=== PATIENT | female | born 1950 | race Caucasian/White ===

== ENCOUNTER 2019-02-20 10:36 | Day surgery (SDC) | payer OTHER ==
[~2019-02-20] VITALS: Ht 160 cm; Wt 78.5 kg
[~2019-02-20 10:36] MED LIST: ADV100INH INH; ARIP1TAB4 PO; ATEN25TA PO; ATOR40TA75 PO; DITR5TAB PO; EFFE150C2 PO; ESTR625TA PO; FENO135C6 PO; FLON1SPR; GABA-845 PO; KLOR10TA76 PO; NABU-126 PO; NS 1,000 ML IV ONE; ORPH100T PO; PROT1TAB2 PO; VENTAER INH; ZETI10TA30 PO
[2019-02-20] MEDS ORDERED: PROPOFOL 200 MG/20 ML VIAL As Ordered ONE (11:18)
[2019-02-20] MEDS ORDERED: LIDOCAINE 2% INJ 100 MG/5 ML SDV (FOR ANES.) As Ordered ONE (11:18)
[2019-02-20] MEDS ORDERED: fentaNYL 100 MCG/2 ML INJECTION (J3010) As Ordered ONE (12:09)
[2019-02-20 13:20] VITALS: BP 137/71
--- NOTE | 2019-02-20 13:29 | ROOR ---
Patient Name: Dianne Graham Procedure Date: 02/20/2019 12:39 PM Date of : 1950 Age: 68 Room: [facility] Gender: Female Note Status: Finalized Procedure: Upper GI endoscopy Indications: Follow-up of hiatal hernia Providers: Minor Pantoja MD Referring MD: Harini Romo Requesting Provider: Medicines: Monitored Anesthesia Care Complications: No immediate complications. Procedure: Pre-Anesthesia Assessment: - Prior to the procedure, a History and Physical was performed, and patient medications and allergies were reviewed. The patient is competent. The risks and benefits of the procedure and the sedation options and risks were discussed with the patient. All questions were answered and informed consent was obtained. Patient identification and proposed procedure were verified by the physician, the nurse and the anesthesiologist in the procedure room. Mental Status Examination: alert and oriented. CV Examination: regular rate and rhythm. Prophylactic Antibiotics: The patient does not require prophylactic antibiotics. Prior Anticoagulants: The patient has taken no previous anticoagulant or antiplatelet agents. ASA Grade Assessment: II - A patient with mild systemic disease. After reviewing the risks and benefits, the patient was deemed in satisfactory condition to undergo the procedure. The anesthesia plan was to use monitored anesthesia care (MAC). Immediately prior to administration of medications, the patient was re-assessed for adequacy to receive sedatives. The heart rate, respiratory rate, oxygen saturations, blood pressure, adequacy of pulmonary ventilation, and response to care were monitored throughout the procedure. The physical status of the patient was re-assessed after the procedure. The Endoscope was introduced through the mouth, and advanced to the second part of duodenum. The upper GI endoscopy was accomplished without difficulty. The patient tolerated the procedure well. Findings: The examined esophagus was normal. The Z-line was regular and was found 30 cm from the incisors. A large hiatal hernia was present. The diaphragm lay at approximately 35cm with the impingement in the mid gastric body. Multiple 2 to 10 mm sessile polyps with no bleeding and no stigmata of recent bleeding were found in the gastric body. Two localized, 2 to 3 mm non-bleeding erosions were found in the prepyloric region of the stomach. There were no stigmata of recent bleeding. The examined duodenum was normal. Impression: - Normal esophagus. - Z-line regular, 30 cm from the incisors. - Large hiatal hernia. - Multiple gastric polyps. - Non-bleeding erosive gastropathy. - Normal examined duodenum. - No specimens collected. Recommendation: - Discharge patient to home. - Resume previous diet. - Continue present medications. - Return to endoscopist at appointment to be scheduled. Minor Pantoja MD Minor Pantoja MD 02/20/2019 1:28:55 PM Electronically signed by Minor Pantoja MD Number of Addenda: 0 Note Initiated On: 02/20/2019 12:39 PM Estimated Blood Loss: Estimated blood loss: none.
== END 2019-02-20 13:59 | disposition home or self-care (01) ==
LOC: M OPP 10:36
PROVIDERS: ATTEND Surgery
DX: K44.9 Diaphragmatic hernia without obstruction or gangrene (principal); R11.2 Nausea with vomiting, unspecified; K31.7 Polyp of stomach and duodenum; K31.89 Other diseases of stomach and duodenum; F41.9 Anxiety disorder, unspecified; K21.9 Gastro-esophageal reflux disease without esophagitis; M54.89 Other dorsalgia; J45.909 Unspecified asthma, uncomplicated; I10 Essential (primary) hypertension; E78.5 Hyperlipidemia, unspecified; K58.9 Irritable bowel syndrome, unspecified; K92.1 Melena; R13.10 Dysphagia, unspecified; R35.0 Frequency of micturition; M19.90 Unspecified osteoarthritis, unspecified site; F32.9 Major depressive disorder, single episode, unspecified; Z78.0 Asymptomatic menopausal state; J44.9 Chronic obstructive pulmonary disease, unspecified; R06.02 Shortness of breath; Z87.891 Personal history of nicotine dependence; Z88.5 Allergy status to narcotic agent; Z79.899 Other long term (current) drug therapy
CPT/HCPCS: 43235; J3010

== ENCOUNTER 2019-03-17 10:30 | Inpatient (IN) | payer OTHER ==
[~2019-03-17] VITALS: Ht 160 cm; Wt 76.3 kg
[~2019-03-17 10:30] MED LIST changes: -NS 1,000 ML IV ONE; +ZETI10TA16 PO; -ZETI10TA30 PO
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
[2019-03-31] MEDS ORDERED: LR 1,000 ML IV ONE (08:45)
[2019-03-31] MEDS ORDERED: PROPOFOL 200 MG/20 ML VIAL As Ordered ONE (08:59)
[2019-03-31] MEDS ORDERED: ROCURONIUM BROMIDE 50 MG/5 ML VIAL As Ordered ONE ×2 (08:59→14:04)
[2019-03-31] MEDS ORDERED: dexameTHASONE 4 MG/ML 1ML VIAL (J1100) As Ordered ONE (09:00)
[2019-03-31] MEDS ORDERED: MIDAZOLAM INJ 2 MG/2 ML VIAL (J2250) As Ordered ONE (09:00)
[2019-03-31] MEDS ORDERED: LIDOCAINE 2% INJ 100 MG/5 ML SDV (FOR ANES.) As Ordered ONE (09:00)
[2019-03-31] MEDS ORDERED: KETOROLAC 60 MG/2 ML VIAL (J1885) As Ordered ONE (09:00)
[2019-03-31] MEDS ORDERED: ONDANSETRON 4MG/2ML VIAL (J2405) As Ordered ONE (09:00)
[2019-03-31] MEDS ORDERED: fentaNYL 250 MCG/5 ML INJECTION (J3010) As Ordered ONE (09:00)
[2019-03-31] MEDS ORDERED: BUPIVACAINE HCL 0.25% 30 ML VIAL As Ordered ONE (10:19)
[2019-03-31] MEDS ORDERED: ePHEDrine SULFATE 25 MG/5 ML(5MG/ML) SYRINGE As Ordered ONE (13:32)
[2019-03-31] MEDS ORDERED: SUGAMMADEX SODIUM 500 MG/5 ML VIAL (BRIDION) As Ordered ONE (14:04)
[2019-03-31] MEDS ORDERED: HYDROmorphone HCL 2 MG/ML 1ML VIAL (J1170) As Ordered ONE (14:29)
[2019-03-31] MEDS ORDERED: ACETAMINOPHEN 1000MG 100ML IV BTL (OFIRMEV) (J0131 PER 10MG) As Ordered ONE (14:51)
[2019-03-31] MEDS ORDERED: ceFAZolin 2 GM/D5W 50 ML IV BAG (J0690 PER 500MG) As Ordered ONE (16:56)
[2019-03-31] MEDS ORDERED: METOCLOPRAMIDE INJ 10MG/2ML VIAL (J2765) IV PRN (18:45)
[2019-03-31] MEDS ORDERED: ONDANSETRON 4MG/2ML VIAL (J2405) IV PRN ×2 (18:45→19:00)
[2019-03-31] MEDS ORDERED: ceFAZolin SOD 1 GM in D5W MINI-BAG PLUS 50 ML IV ONE (18:45)
[2019-03-31] MEDS ORDERED: fentaNYL 100 MCG/2 ML INJECTION (J3010) IV PRN (19:00)
[2019-03-31] MEDS ORDERED: PERCOCET 5MG/325MG TAB PO PRN (19:00)
[2019-03-31] MEDS ORDERED: LR 1,000 ML IV SCH (19:00)
[2019-03-31] MEDS ORDERED: hydrALAZINE INJ 20 MG/ML VIAL IV PRN (19:00)
[2019-03-31] MEDS: LABETALOL HCL 100 MG/20 ML VIAL IV PRN ×2 (19:07→19:13)
--- NOTE | 2019-03-31 19:34 | REP ---
Portable chest x-ray: Single view. History: Evaluate for pneumothorax. Comparison study: January 29, 2008. Findings: There is extrathoracic soft tissue emphysema along the left lower lateral chest wall. A small left superolateral pneumothorax is suspected. The right lung is clear. No rib fracture is appreciated. Impression: Extrathoracic soft tissue emphysema along the left lower lateral chest wall. A small left superolateral pneumothorax suspected. No large pneumothorax seen. Linear fibrosis right mid lung zone. Electronically Signed by Ranjan Mccain MD 03/31/2019 07:26 P
[2019-03-31 19:35] VITALS: BP 186/94
[2019-03-31] MEDS: ADVAIR HFA 115/21MCG INHALER INH SCH (21:00)
[2019-03-31] MEDS: GABAPENTIN 400 MG CAP PO SCH (21:00)
[2019-03-31 22:00] VITALS: BP 184/94
[2019-03-31] MEDS: LR 1,000 ML IV SCH (22:49)
[2019-03-31] MEDS: KETOROLAC 30 MG/ML VIAL (J1885) IV PRN (22:49)
[2019-03-31 23:00] VITALS: BP 160/76
[2019-04-01] VITALS (9 sets, daily range): BP systolic 138–170; BP diastolic 69–78
[2019-04-01] MEDS: NORCO, ANEXSIA 5/325MG TABLET (HYDROcodone/ACETAMINOPHEN) PO PRN ×3 (02:38→17:42)
[2019-04-01] MEDS: MORPHINE 4 MG/ML 1ML VIAL/SYRINGE (J2270) IV PRN (03:17)
[2019-04-01 06:09] LABS: BASO % 0.2 % (0.0-1.0); HEMATOCRIT 31.8 % (36.0-47.0); HEMOGLOBIN 9.3 g/dl (12.0-15.5); LYMPH # 0.8 10^3/uL (1.5-5.0); LYMPH % 12.8 % (24.0-44.0); MEAN CORPUSCULAR HEMOGLOBIN 20.8 pg (27.0-33.0); MEAN CORPUSCULAR HGB CONC 29.2 g/dl (32.0-36.5); MONO # 0.5 10^3/uL (0.0-0.8); MONO % 7.5 % (0.0-5.0); NEUTROPHILS # 5.1 10^3/uL (1.5-8.5); NEUTROPHILS % 79.2 % (36.0-66.0); PLATELET COUNT, AUTOMATED 145 10^3/uL (150-450); RED BLOOD COUNT 4.48 10^6/uL (4.00-5.40); WHITE BLOOD COUNT 6.4 10^3/uL (4.0-10.0)
[2019-04-01 06:35] LABS: ALBUMIN 3.4 GM/DL (3.2-5.2); ALT/SGPT 579 U/L (12-78); BILIRUBIN,TOTAL 0.4 MG/DL (0.2-1.0); BLOOD UREA NITROGEN 20 MG/DL (7-18); CALCIUM LEVEL 8.7 MG/DL (8.8-10.2); CARBON DIOXIDE LEVEL 29 MEQ/L (21-32); CHLORIDE LEVEL 106 MEQ/L (98-107); CREATININE FOR GFR 0.82 MG/DL (0.55-1.30); GLOMERULAR FILTRATION RATE > 60.0 (>39); GLUCOSE, FASTING 114 MG/DL (70-100); POTASSIUM SERUM 3.9 MEQ/L (3.5-5.1); SODIUM LEVEL 143 MEQ/L (136-145); TOTAL PROTEIN 6.1 GM/DL (6.4-8.2)
[2019-04-01] MEDS: ADVAIR HFA 115/21MCG INHALER INH SCH ×2 (07:35→20:32)
[2019-04-01] MEDS: PANTOPRAZOLE 40MG INJ (PROTONIX) (C9113) IV SCH (07:54)
[2019-04-01] MEDS: ENOXAPARIN 40 MG/0.4 ML SYRINGE (J1650) SC SCH (07:55)
[2019-04-01] MEDS: ARIPiprazole 2 MG TAB PO SCH (07:55)
[2019-04-01] MEDS: ATENOLOL 25 MG TAB PO SCH (07:55)
[2019-04-01] MEDS: GABAPENTIN 400 MG CAP PO SCH ×3 (07:55→20:49)
[2019-04-01] MEDS: LR 1,000 ML IV SCH ×2 (07:56→17:29)
[2019-04-01] MEDS: ALBUTEROL 90 MCG/ACT 8GM HFA INHALER INH PRN (11:04)
[2019-04-01] MEDS: KETOROLAC 30 MG/ML VIAL (J1885) IV PRN ×2 (11:12→20:50)
[2019-04-02] VITALS: BP 138/73
[2019-04-02] MEDS: MORPHINE 4 MG/ML 1ML VIAL/SYRINGE (J2270) IV PRN ×3 (01:03→20:33)
[2019-04-02] MEDS: NORCO, ANEXSIA 5/325MG TABLET (HYDROcodone/ACETAMINOPHEN) PO PRN (03:35)
[2019-04-02 06:00] VITALS: BP 156/81
[2019-04-02] MEDS: ADVAIR HFA 115/21MCG INHALER INH SCH ×2 (07:42→18:19)
[2019-04-02] MEDS ORDERED: PILL CUTTER 1 EACH XX PRN (08:30)
[2019-04-02] MEDS: ENOXAPARIN 40 MG/0.4 ML SYRINGE (J1650) SC SCH (08:39)
[2019-04-02] MEDS: DOCUSATE SODIUM 100 MG CAP PO SCH ×2 (08:40→20:33)
[2019-04-02] MEDS: KETOROLAC 30 MG/ML VIAL (J1885) IV PRN ×2 (08:40→16:16)
[2019-04-02] MEDS: PANTOPRAZOLE 40MG INJ (PROTONIX) (C9113) IV SCH (08:40)
[2019-04-02] MEDS: GABAPENTIN 400 MG CAP PO SCH ×3 (08:40→20:34)
[2019-04-02] MEDS: ARIPiprazole 2 MG TAB PO SCH (08:41)
[2019-04-02] MEDS: SIMETHICONE 80 MG CHEW TAB PO SCH ×4 (08:41→20:34)
[2019-04-02] MEDS: ATENOLOL 25 MG TAB PO SCH (08:41)
--- NOTE | 2019-04-02 09:30 | REP ---
Portable chest x-ray: Single view. History: Follow-up question pneumothorax. Findings: The extrathoracic air seen along the left lower lateral chest wall on 03/31/2019 prior radiograph has dissipated. There is no visible pneumothorax today on either side. There is increased density in the left base obscuring left hemidiaphragm and blunting the left lateral pleural angle consistent with small left pleural effusion however. There is discoid atelectasis in the right base. Some discoid atelectasis appears to be present in the left base. Impression: Left pleural effusion. No pneumothorax seen. Bibasilar plate-like atelectasis. Electronically Signed by Ranjan Mccain MD 04/02/2019 09:21 A
[2019-04-02 10:00] VITALS: BP 158/81
[2019-04-02 14:00] VITALS: BP 142/66
[2019-04-02 18:00] VITALS: BP 147/70
--- NOTE | 2019-04-02 20:14 | IPN ---
DATE: 04/02/2019 Patient is status post robotic-assisted paraesophageal hernia repair by Dr. Pantoja and had this performed on 03/31/2010 and overall, had a relatively large paraesophageal hernia. Was started on a clear liquid diet but is here for additional observation after her procedure. All had a Kaia fundoplication at that time. Does not complain of any significant respiratory distress, although feels quite full and has not had any complaints of dysphasia per se, but was started on full diet this morning and really has not tolerated much of this. She has had some abdominal distension with some pulling across her incisions and it is uncomfortable for her at this time. Extremities have been warm and well-perfused. Her vitals have been stable. Her urine output has been good and she has been voiding without a catheter in place. IMPRESSION AND PLAN: Patient is postoperative day #2 from a laparoscopic Kaia fundoplication/repair of paraesophageal hernia and overall was started on a clear liquid diet yesterday and tolerated that and was progressed to a full liquid diet today/mechanical soft type of diet and she is doing okay with swallowing without dysphasia; however, she is quite distended and tympanitic in the upper abdomen and I anticipate she is probably having some minimal delayed gastric emptying associated with the big paraesophageal hernia repair that she had. Thus at this point, I would recommend that we give her some simethicone products, give her some stool softeners to help with bowel movements and, from her standpoint, see how she does with this. If she becomes much less distended over the day, then we could consider having her discharged later on today, but I would like to keep her another 24 hours, watch her, and if she does well and is making some good progress, then will plan on discharge tomorrow.
[2019-04-02 22:00] VITALS: BP 137/64
[2019-04-03] VITALS (10 sets, daily range): BP systolic 130–172; BP diastolic 62–79
[2019-04-03] MEDS: ALBUTEROL 90 MCG/ACT 8GM HFA INHALER INH PRN (02:51)
[2019-04-03] MEDS: ADVAIR HFA 115/21MCG INHALER INH SCH ×2 (07:44→20:32)
[2019-04-03] MEDS: MORPHINE 4 MG/ML 1ML VIAL/SYRINGE (J2270) IV PRN ×4 (08:33→17:08)
[2019-04-03] MEDS: ARIPiprazole 2 MG TAB PO SCH (09:04)
[2019-04-03] MEDS: GABAPENTIN 400 MG CAP PO SCH ×3 (09:04→20:40)
[2019-04-03] MEDS: DOCUSATE SODIUM 100 MG CAP PO SCH ×2 (09:04→20:40)
[2019-04-03] MEDS: ATENOLOL 25 MG TAB PO SCH (09:05)
[2019-04-03] MEDS: SIMETHICONE 80 MG CHEW TAB PO SCH ×4 (09:05→20:41)
[2019-04-03] MEDS: ENOXAPARIN 40 MG/0.4 ML SYRINGE (J1650) SC SCH (09:06)
[2019-04-03] MEDS: PANTOPRAZOLE 40MG INJ (PROTONIX) (C9113) IV SCH (09:06)
[2019-04-03 10:06] LABS: HEMATOCRIT 31.7 % (36.0-47.0); HEMOGLOBIN 9.1 g/dl (12.0-15.5); MEAN CORPUSCULAR HEMOGLOBIN 20.7 pg (27.0-33.0); MEAN CORPUSCULAR HGB CONC 28.7 g/dl (32.0-36.5); MEAN CORPUSCULAR VOLUME 72.2 fl (80.0-96.0); PLATELET COUNT, AUTOMATED 132 10^3/uL (150-450); RED BLOOD COUNT 4.39 10^6/uL (4.00-5.40); WHITE BLOOD COUNT 7.9 10^3/uL (4.0-10.0)
[2019-04-03] MEDS: METOCLOPRAMIDE INJ 10MG/2ML VIAL (J2765) IV SCH ×4 (10:21→20:41)
[2019-04-03 10:25] LABS: BLOOD UREA NITROGEN 11 MG/DL (7-18); CALCIUM LEVEL 8.7 MG/DL (8.8-10.2); CARBON DIOXIDE LEVEL 29 MEQ/L (21-32); CHLORIDE LEVEL 103 MEQ/L (98-107); CREATININE FOR GFR 0.79 MG/DL (0.55-1.30); GLOMERULAR FILTRATION RATE > 60.0 (>39); GLUCOSE, FASTING 163 MG/DL (70-100); POTASSIUM SERUM 3.5 MEQ/L (3.5-5.1); SODIUM LEVEL 139 MEQ/L (136-145)
--- NOTE | 2019-04-04 00:22 | RO ---
DATE OF PROCEDURE: 03/31/2019 PREOPERATIVE DIAGNOSIS: Incarcerated hiatal hernia with obstructive symptoms. POSTOPERATIVE DIAGNOSIS: Large incarcerated esophageal hiatal hernia with obstructive symptoms. PROCEDURE PERFORMED: Robotic-assisted laparoscopic repair of an incarcerated hiatal hernia with Kaia fundoplication and placement of mesh. SURGEON: Dr. Minor Pantoja PORT TRAFFIC MANAGER: Deedee Red, Nurse Practitioner. Deedee's assistance was necessary for placement of the trocars, exchange of instruments, and assistance in placing the sutures and mesh into the abdomen appropriately. ANESTHESIA: General. INDICATIONS FOR PROCEDURE: Patient is a 68-year-old woman who was evaluated for some chest discomfort with some nausea and occasional vomiting. She was found to have a large hiatal hernia. This was evaluated by CT scan and upper endoscopy. She was found to have a large hiatal hernia that appeared to be at least partially paraesophageal. She was counseled for surgery and is now for a robotically-assisted laparoscopic reduction and repair of her hernia. DESCRIPTION OF PROCEDURE: The patient was brought to the operating room and placed supine on the operating table. She was placed under general endotracheal anesthesia. A Monteiro catheter was inserted. She was moved into a low lithotomy position with her legs supported in padded leg holders. Thromboembolism deterrents (TEDs) and sequentials were utilized. The patient's abdomen was prepped and draped in a sterile fashion. The initial entry into the abdomen was in the left upper quadrant. A short incision was made and the Veress needle was inserted. After a positive hanging drop test, the abdomen was insufflated with carbon dioxide gas. 8 mm Visiport for the robot was placed over camera, and this was advanced through the abdominal wall without difficulty. Initial inspection showed normal-appearing liver. There were no adhesions of any significance to interfere with the exposure. A few adhesions in the lower portion of the abdomen were left undisturbed. The dilated esophageal hiatus was evident. A total of four robotic ports were placed across the upper abdomen extending from just below the costal margin on the left across to below the costal margin on the right. A fifth trocar, which was 5 mm in diameter, was placed high in the right upper quadrant for placement of a liver retractor. The patient was tilted to a reverse Trendelenburg position and rolled slightly to the left. The patient cart of the XI robot was brought into position and the camera port was docked. Targeting took place and the additional robotic arms were then docked as well. I then moved to the control console to begin the robotic portion of the procedure. The flexible liver retractor was inserted through the right upper quadrant port and placed beneath the left lobe of the liver. This was connected by a flexible arm to the post of the Bookwalter retractor. I proceeded using a grasping retractor in the left upper quadrant with cauterizing scissors, the camera and then a bipolar cauterizing instrument in the more lateral right-sided in instrument. Some omentum, which was loosely within the hiatal hernia, was withdrawn into the abdomen. The anterior wall of the stomach was identified and some gentle traction was applied to the stomach. The greater curve was identified, and with gentle traction on the lateral tissues countering elevation of the stomach, the short gastric vessels were divided using the Harmonic scalpel. Dissection proceeded up along the greater curve of the stomach dividing all of the short gastrics up to the level of the diaphragm. There were some adhesions of the stomach posteriorly at the hiatus with the fundus of the stomach adherent up into the inferior mediastinum, particularly posteriorly overlying the esophagus. Dissection proceeded to incise the hernia sac at the opening of the esophageal hiatus, which facilitated mobilizing the fundus of the stomach out of the inferior mediastinum to free this back down into the abdomen. The left karthik of the diaphragm was clearly identified and exposed. Anteriorly the stomach was free. The right side of the hiatus was then inspected. The lesser omentum was opened and dissection proceeded up along the lesser curve of the stomach. The hernia sac was then freed from within the inferior mediastinum and retracted into the abdomen, and the hernia sac and some fibrofatty tissue surrounding the area of the gastroesophageal junction was then all dissected free using the Harmonic scalpel. This was placed aside in the right upper quadrant for later removal. This facilitated proceeding to expose the right karthik of the diaphragm. The distal esophagus was then mobilized away from the edge of the esophageal hiatus, signaling that it was completely freed at this level. I then carried the dissection of the esophagus further up into the inferior mediastinum. It was necessary to convert from the Harmonic scalpel to a vessel sealer for the additional length of the vessel sealer to continue this dissection. The esophagus was mobilized at least 6-7 cm up into the mediastinum. With this much dissection, the gastroesophageal junction appeared to lie just below the level of the diaphragm. Because the Bookwalter grasper was not holding the liver retractor well, an additional cardiovascular surgical tech was necessary to hold manually the liver retractor for a prolonged portion of the latter portion of the procedure. Final inspection within the inferior mediastinum showed no evidence of any bleeding and no direct penetration into the pleural space. At this point I proceeded with approximation of the crura beginning at the posterior most (dictation cut off). A 46-Libyan bougie was inserted by anesthesia prior to the crural approximation. Several sutures were placed at the anterior aspect of the hiatal opening. There was some tension in this area and so to free this up somewhat, I elevated the lateral aspect of the left lobe of the liver off of the overlying diaphragm by dividing the triangular ligament. This allowed me to better expose this area. I then closed a portion of this anterior defect with a running suture of #1-0 Stratafix. Once the hiatus had been narrowed appropriately, the #46-Libyan bougie was removed. I elected to place a piece of Parietex mesh over the undersurface of the diaphragm and over the crura surrounding the hiatus. A 9 cm patch was selected. A notch was made in one side and a small opening approximately 2.5 cm in diameter was created in the middle. This was inserted into the abdomen and placed around the esophagus at the hiatus. The notch was placed on the medial aspect of the hiatus. This was then sutured in place using a #2-0 V-Loc suture to tack down the periphery, taking very shallow bites of the diaphragm as this was placed. The suturing began medially and was carried up anteriorly and then down to the lateral aspect. Exposure of more posterior area was more difficult, but it was possible to retract the stomach and several simple sutures of #2-0 silk were placed to tack down the most inferior and posterior aspects of the mesh to the underlying crura of the diaphragm. This appeared to nicely position the mesh around the esophageal hiatus. I then elected to proceed with a Kaia fundoplication. A 3#6-Libyan bougie was inserted down into the stomach by anesthesia at my request. The fundus of the stomach was grasped and delivered posteriorly around the GE junction. A Kaia fundoplication was performed with three simple sutures of #1-0 silk. The superior most suture incorporated a small bite of the esophageal wall. This created an approximately 2 cm long wrap. This appeared to be nicely positioned just above the GE junction. Two fixating sutures of silk were placed to tack the superior border of the wrap to the edge of the esophageal hiatus incorporating a small bite of the mesh in this area as well. The bougie was removed and the wrap appeared to be of adequate looseness. Inspection revealed no evidence of any bleeding. The liver retractor was uncoiled and removed under direct vision. The robot was undocked and the patient cart was withdrawn. I returned to the patient's bedside. The patient was returned to a flat position. The abdomen was deflated and the trocars were all removed. I would note that prior to undocking the robot, the hiatal hernia sac and the fatty pad from around the GE junction had been placed within a 5 mm specimen retrieval port. This had been partially delivered through the abdominal wall through one of the trocar sites and all of the tissue had been withdrawn from within the bag and the bag was then removed. The incisions were closed with Vicryl and light dressings were applied. The patient tolerated the procedure well without apparent complication. The Parietex patch that had been utilized was reference code [id number], lot number [id number].
[2019-04-04 02:00] VITALS: BP 149/75
[2019-04-04] MEDS: MORPHINE 4 MG/ML 1ML VIAL/SYRINGE (J2270) IV PRN ×3 (05:53→18:37)
[2019-04-04 06:00] VITALS: BP 143/75
[2019-04-04] MEDS: ADVAIR HFA 115/21MCG INHALER INH SCH ×2 (07:56→20:43)
[2019-04-04 10:00] VITALS: BP 160/89
[2019-04-04] MEDS: ARIPiprazole 2 MG TAB PO SCH (11:08)
[2019-04-04] MEDS: PANTOPRAZOLE 40MG INJ (PROTONIX) (C9113) IV SCH (11:08)
[2019-04-04] MEDS: DOCUSATE SODIUM 100 MG CAP PO SCH ×2 (11:08→20:57)
[2019-04-04] MEDS: GABAPENTIN 400 MG CAP PO SCH ×3 (11:08→20:57)
[2019-04-04] MEDS: ENOXAPARIN 40 MG/0.4 ML SYRINGE (J1650) SC SCH (11:08)
[2019-04-04] MEDS: SIMETHICONE 80 MG CHEW TAB PO SCH ×4 (11:08→20:57)
[2019-04-04] MEDS: METOCLOPRAMIDE INJ 10MG/2ML VIAL (J2765) IV SCH ×4 (11:10→20:58)
[2019-04-04] MEDS: ATENOLOL 25 MG TAB PO SCH (11:12)
--- NOTE | 2019-04-04 12:20 | REP ---
ABDOMINAL SERIES: Supine and erect views of the abdomen demonstrate no evidence of free intraperitoneal air. There is moderate distention of the stomach with air and fluid with distention of the duodenal bulb as well. There is mild air seen in non-dilated bowel loops distally. No abnormal calcifications are seen. There are degenerative changes of the spine. An accompanying view of the chest again demonstrates a stable left pleural effusion with adjacent left base atelectasis/infiltrate. There is also probably a small right effusion, with mild right basilar atelectasis/infiltrate unchanged. Cardiomediastinal silhouette is unchanged. IMPRESSION: Moderate distention of the stomach and duodenal bulb with air and fluid. Otherwise, no dilated bowel loops and no free air. Stable effusions and bibasilar atelectasis/infiltrate, left greater than right. Electronically Signed by Fan Dick MD 04/04/2019 12:22 P
[2019-04-04 12:30] LABS: BLOOD UREA NITROGEN 10 MG/DL (7-18); CALCIUM LEVEL 8.6 MG/DL (8.8-10.2); CARBON DIOXIDE LEVEL 29 MEQ/L (21-32); CHLORIDE LEVEL 105 MEQ/L (98-107); GLOMERULAR FILTRATION RATE > 60.0 (>39); GLUCOSE, FASTING 127 MG/DL (70-100); POTASSIUM SERUM 3.5 MEQ/L (3.5-5.1); SODIUM LEVEL 143 MEQ/L (136-145)
[2019-04-04] MEDS: KCL 40MEQ in NS 1000ML 1,000 ML IV SCH ×2 (12:40→23:07)
[2019-04-04 14:00] VITALS: BP_SYST 134; BP_SYST 137; BP_DIAS 64; BP_DIAS 76
[2019-04-04 18:00] VITALS: BP 143/72
[2019-04-04 20:00] VITALS: BP 170/89
[2019-04-04] MEDS: KETOROLAC 30 MG/ML VIAL (J1885) IV PRN (20:58)
[2019-04-05] VITALS: BP 175/82
[2019-04-05] MEDS: MORPHINE 4 MG/ML 1ML VIAL/SYRINGE (J2270) IV PRN ×3 (05:19→21:07)
[2019-04-05 06:00] VITALS: BP 165/83
[2019-04-05 06:44] LABS: BLOOD UREA NITROGEN 10 MG/DL (7-18); CALCIUM LEVEL 8.3 MG/DL (8.8-10.2); CARBON DIOXIDE LEVEL 27 MEQ/L (21-32); CHLORIDE LEVEL 109 MEQ/L (98-107); CREATININE FOR GFR 0.51 MG/DL (0.55-1.30); GLOMERULAR FILTRATION RATE > 60.0 (>39); GLUCOSE, FASTING 98 MG/DL (70-100); POTASSIUM SERUM 3.7 MEQ/L (3.5-5.1); SODIUM LEVEL 143 MEQ/L (136-145)
[2019-04-05] MEDS: ADVAIR HFA 115/21MCG INHALER INH SCH ×2 (07:52→20:12)
[2019-04-05] MEDS: DOCUSATE SODIUM 100 MG CAP PO SCH ×2 (09:00→21:00)
[2019-04-05] MEDS: SIMETHICONE 80 MG CHEW TAB PO SCH ×4 (09:43→21:04)
[2019-04-05] MEDS: KCL 40MEQ in NS 1000ML 1,000 ML IV SCH ×2 (09:43→21:34)
[2019-04-05] MEDS: PANTOPRAZOLE 40MG INJ (PROTONIX) (C9113) IV SCH (09:43)
[2019-04-05] MEDS: ARIPiprazole 2 MG TAB PO SCH (09:43)
[2019-04-05] MEDS: METOCLOPRAMIDE INJ 10MG/2ML VIAL (J2765) IV SCH ×4 (09:43→21:04)
[2019-04-05] MEDS: ATENOLOL 25 MG TAB PO SCH (09:44)
[2019-04-05] MEDS: GABAPENTIN 400 MG CAP PO SCH ×3 (09:44→21:04)
[2019-04-05] MEDS: ENOXAPARIN 40 MG/0.4 ML SYRINGE (J1650) SC SCH (09:44)
[2019-04-05 10:00] VITALS: BP 167/74
[2019-04-05] MEDS: KETOROLAC 30 MG/ML VIAL (J1885) IV PRN (10:27)
[2019-04-05 14:00] VITALS: BP 178/79
--- NOTE | 2019-04-05 15:48 | IPN ---
DATE: 04/03/2019 Patient has continued to be afebrile, but she still has some generalized shortness of breath and a chest x-ray was performed yesterday that revealed a pleural effusion but no pneumothorax and some atelectasis. She was tolerating a clear full liquid diet quite nicely and was hoping to have some food and thus I ordered her some foods for the day, as well as started her on some metoclopramide. Given her stomach distension, I anticipate she probably has some gastric emptying issues, probably secondary to manipulation of the stomach and probably has had some delayed emptying associated with this itself. In any case, she seems to be tolerating clears as well as fulls, and had a little bit of flatus and overall does not feel any more distended today than she did yesterday, but on her physical exam her lungs are diminished at the bases bilaterally. Heart is regular and overall the nurses had a tachypnea of over 30 recorded, but she really does not appear that tachypneic and really, when I am talking to her, she does not have to gasp and finishes her sentences without significant shortness of breath. From the standpoint of her abdominal distension, it is about as it was yesterday and with her starting to have some flatus, I anticipate we are at a status quo this time. She really would like to go home and I have instructed her that she needs to have some clinical improvement as well as tolerate food prior to going home. Thus, will see how she does with the foods over the next 24 hours.
--- NOTE | 2019-04-05 15:53 | IPN ---
DATE: 04/04/2019 Patient had some regular food yesterday and after having the regular food, she really did not feel very well. She had some discomfort and a little bit more shortness of breath with the food and some mild dysphagia issues, so I put her back on a clear liquid diet. However, this morning she is much more distended and clinically looks as though it is all gastric and a very distended air-filled stomach. Despite our medical treatment of this, I anticipate that will need to put an nasogastric (NG) tube. We did get a KUB after assessing her initially and it did show gastric distension, thus we ordered an NG tube for placement and intravenous (IV) fluid as well as nothing by mouth. She overall does not appear to have any infectious status, does not have any bleeding issues and it is mostly a gastric emptying problem at this time. I anticipate she may need the NG tube in for a few days, possibly over the weekend and after the weekend if she does not tolerate clamping of the NG tube, she may need a gastrostomy tube with a possible jejunostomy component to it. At this point, we will see how she does after NG tube decompression. I anticipate that should significantly improve, impact her respiratory status and once that improves, I anticipate that we will have some rapidly progressive improvement of other issues as well.
[2019-04-05 18:00] VITALS: BP 188/86
[2019-04-05 20:00] VITALS: BP 132/82
[2019-04-06 02:00] VITALS: BP 139/71
--- NOTE | 2019-04-06 07:11 | REP ---
REASON: Followup. The accompanying frontal view of the chest is unchanged from the prior exam with the exception of placement of a nasogastric tube since that examination. The proximal port of which is in the region of the stomach body. Bibasilar lung opacities with pleural effusion persist and are stable. There is no evidence of free intraperitoneal air. There is a paucity of bowel gas which suggests fluid filled bowel. There is no change in the osseous structures. IMPRESSION:1. No change in the lung hurtado with findings as described above. 2. Abated gaseous distension of the stomach with recent passage of a nasogastric tube as described above. 3. Generalized paucity of bowel gas as described above. Electronically Signed by Corey Sanderson DO 04/06/2019 09:16 A
[2019-04-06] MEDS: KCL 40MEQ in NS 1000ML 1,000 ML IV SCH ×3 (07:40→23:14)
[2019-04-06] MEDS: ADVAIR HFA 115/21MCG INHALER INH SCH ×2 (08:07→20:36)
[2019-04-06] MEDS: ACETAMINOPHEN TAB 650MG DOSE (2X325MG) PO PRN (08:22)
[2019-04-06] MEDS: DOCUSATE SODIUM 100 MG CAP PO SCH ×2 (09:00→21:45)
[2019-04-06] MEDS: ARIPiprazole 2 MG TAB PO SCH (09:09)
[2019-04-06] MEDS: ATENOLOL 25 MG TAB PO SCH (09:10)
[2019-04-06] MEDS: METOCLOPRAMIDE INJ 10MG/2ML VIAL (J2765) IV SCH ×4 (09:11→21:48)
[2019-04-06] MEDS: SIMETHICONE 80 MG CHEW TAB PO SCH ×4 (09:11→21:45)
[2019-04-06] MEDS: GABAPENTIN 400 MG CAP PO SCH ×3 (09:11→21:46)
[2019-04-06] MEDS: PANTOPRAZOLE 40MG INJ (PROTONIX) (C9113) IV SCH (09:11)
[2019-04-06] MEDS: ENOXAPARIN 40 MG/0.4 ML SYRINGE (J1650) SC SCH (09:12)
[2019-04-06 10:00] VITALS: BP_SYST 144; BP_SYST 185; BP_DIAS 88; BP_DIAS 89
--- NOTE | 2019-04-06 11:43 | IPNPDOC ---
Text Note Date of Service The patient was seen on 04/06/19. NOTE Patient reports some local discomfort from the NGT, affecting her breathing but denies any more nausea, bloating with the NGT clamped more than 24 hours now. She has been having hard stools and reports discomfort on swallowing the flonase She is seating comfortably on the chair, NGT clamped. Lungs have some scattered crackles most prominent on the left side. Abdomen is soft, nontender to palpation. XR: no buildup of stomach gas with the NGT clamped IMPRESSION/PLANS s/p RA Lap paraesophageal repair with Kaia Fundoplication d/c ngt clears if patient rebuilds gas bloat again and not able to tolerate it, may need a PEG placed. VS,Fishbone, I+O VS, Fishbone, I+O Vital Signs Date Time Temp Pulse Resp B/P (MAP) Pulse Ox O2 Delivery O2 Flow Rate FiO2 04/06/19 10:00 96.4 84 20 144/88 (106) 98 2.0 I&O- Last 24 Hours up to 6 AM 04/06/19 06:00 Intake Total 1200 ml Output Total 1650 ml Balance -450 ml DAMARIS RIGGS MD Apr 06, 2019 11:43
[2019-04-06] MEDS: FLUTICASONE PROP 0.05% NASAL SPRAY 16 GM (FLONASE) PRN ×2 (12:27→21:54)
[2019-04-06 14:00] VITALS: BP 148/76
[2019-04-06] MEDS: NORCO, ANEXSIA 5/325MG TABLET (HYDROcodone/ACETAMINOPHEN) PO PRN ×2 (14:09→21:47)
[2019-04-06 18:00] VITALS: BP 138/72
[2019-04-06 22:00] VITALS: BP 168/94
[2019-04-07] MEDS: KCL 40MEQ in NS 1000ML 1,000 ML IV SCH
[2019-04-07 02:00] VITALS: BP_SYST 126; BP_SYST 140; BP_DIAS 70; BP_DIAS 88
[2019-04-07 06:00] VITALS: BP 144/70
[2019-04-07 06:24] LABS: BASO % 0.4 % (0.0-1.0); HEMATOCRIT 30.6 % (36.0-47.0); LYMPH # 0.6 10^3/uL (1.5-5.0); LYMPH % 13.2 % (24.0-44.0); MEAN CORPUSCULAR HEMOGLOBIN 20.7 pg (27.0-33.0); MEAN CORPUSCULAR HGB CONC 29.4 g/dl (32.0-36.5); MEAN CORPUSCULAR VOLUME 70.5 fl (80.0-96.0); MONO # 0.4 10^3/uL (0.0-0.8); MONO % 8.7 % (0.0-5.0); NEUTROPHILS # 3.3 10^3/uL (1.5-8.5); NEUTROPHILS % 74.8 % (36.0-66.0); PLATELET COUNT, AUTOMATED 214 10^3/uL (150-450); RED BLOOD COUNT 4.34 10^6/uL (4.00-5.40); WHITE BLOOD COUNT 4.5 10^3/uL (4.0-10.0)
[2019-04-07] MEDS: ACETAMINOPHEN TAB 650MG DOSE (2X325MG) PO PRN (06:27)
[2019-04-07 06:51] LABS: ALBUMIN 2.7 GM/DL (3.2-5.2); ALT/SGPT 88 U/L (12-78); BILIRUBIN,TOTAL 0.7 MG/DL (0.2-1.0); CALCIUM LEVEL 8.7 MG/DL (8.8-10.2); CARBON DIOXIDE LEVEL 25 MEQ/L (21-32); CHLORIDE LEVEL 106 MEQ/L (98-107); CREATININE FOR GFR 0.52 MG/DL (0.55-1.30); GLOMERULAR FILTRATION RATE > 60.0 (>39); GLUCOSE, FASTING 113 MG/DL (70-100); POTASSIUM SERUM 3.7 MEQ/L (3.5-5.1); SODIUM LEVEL 141 MEQ/L (136-145); TOTAL PROTEIN 6.4 GM/DL (6.4-8.2)
[2019-04-07 06:52] LABS: BLOOD UREA NITROGEN 4 MG/DL (7-18)
[2019-04-07] MEDS ORDERED: FUROSEMIDE 20 MG/2 ML VIAL (J1940) IV ONE (08:00)
[2019-04-07] MEDS: ADVAIR HFA 115/21MCG INHALER INH SCH ×2 (08:02→20:48)
[2019-04-07] MEDS: METOCLOPRAMIDE INJ 10MG/2ML VIAL (J2765) IV SCH ×4 (09:00→20:02)
[2019-04-07] MEDS: PANTOPRAZOLE 40MG INJ (PROTONIX) (C9113) IV SCH (09:01)
[2019-04-07] MEDS: ARIPiprazole 2 MG TAB PO SCH (09:01)
[2019-04-07] MEDS: SIMETHICONE 80 MG CHEW TAB PO SCH ×4 (09:01→20:00)
[2019-04-07] MEDS: DOCUSATE SODIUM 100 MG CAP PO SCH (09:01)
[2019-04-07] MEDS: GABAPENTIN 400 MG CAP PO SCH ×3 (09:01→20:00)
[2019-04-07] MEDS: ENOXAPARIN 40 MG/0.4 ML SYRINGE (J1650) SC SCH (09:01)
[2019-04-07] MEDS: ATENOLOL 25 MG TAB PO SCH (09:07)
[2019-04-07] MEDS: NORCO, ANEXSIA 5/325MG TABLET (HYDROcodone/ACETAMINOPHEN) PO PRN ×2 (09:24→20:00)
[2019-04-07 10:00] VITALS: BP 160/70
[2019-04-07 14:00] VITALS: BP 170/75
[2019-04-07 18:00] VITALS: BP 160/72
[2019-04-07] MEDS: FLUTICASONE PROP 0.05% NASAL SPRAY 16 GM (FLONASE) PRN (20:02)
[2019-04-07 22:00] VITALS: BP 168/80
[2019-04-08] VITALS (9 sets, daily range): BP systolic 152–186; BP diastolic 72–102
[2019-04-08] MEDS: NORCO, ANEXSIA 5/325MG TABLET (HYDROcodone/ACETAMINOPHEN) PO PRN ×4 (05:56→19:44)
[2019-04-08] MEDS: ADVAIR HFA 115/21MCG INHALER INH SCH ×2 (08:25→20:37)
[2019-04-08] MEDS: GABAPENTIN 400 MG CAP PO SCH ×3 (09:00→19:43)
[2019-04-08] MEDS: ARIPiprazole 2 MG TAB PO SCH (09:00)
[2019-04-08] MEDS: ATENOLOL 25 MG TAB PO SCH (09:01)
[2019-04-08] MEDS: SIMETHICONE 80 MG CHEW TAB PO SCH (09:02)
[2019-04-08] MEDS: PANTOPRAZOLE 40MG INJ (PROTONIX) (C9113) IV SCH (09:02)
[2019-04-08] MEDS: ENOXAPARIN 40 MG/0.4 ML SYRINGE (J1650) SC SCH (09:03)
[2019-04-08] MEDS: METOCLOPRAMIDE INJ 10MG/2ML VIAL (J2765) IV SCH (09:03)
[2019-04-08] MEDS ORDERED: ONDANSETRON 4 MG ORAL DISINTEGRATING TAB (Q0162 PER 1MG) SL PRN (11:45)
[2019-04-08] MEDS ORDERED: FUROSEMIDE 40 MG TAB PO ONE (13:00)
--- NOTE | 2019-04-08 19:11 | IPN ---
DATE: 04/08/2019 HISTORY: The patient is now postoperative day #8 from her laparoscopic repair of a large paraesophageal hiatal hernia with creation of a Kaia fundoplication with placement of mesh. The patient had developed some symptoms of gas bloating over the previous weekend, which resolved after 1-2 nights of nasogastric (NG) decompression. She is taking a full liquid diet and reports that she is having no trouble swallowing and denies any significant abdominal discomfort. Vital signs show that she has been afebrile over the past 24 hours. Her pulse is in the 70s and low 80s. Her blood pressure has been up into the low 180s over the mid 80s to 90. She has been receiving some Lasix yesterday and today, as I believe she has been somewhat fluid overloaded. Intake and output show that yesterday she had 2600 in with 3400 out. PHYSICAL EXAMINATION: The patient is lying quietly on the hospital bed. She is alert and oriented. She appears comfortable. Heart exam shows a regular rhythm. The lungs are clear. The abdomen is somewhat distended but soft and without significant tenderness. Her incisions are clean and healing well. The patient has no new laboratory studies today after yesterday's testing. IMPRESSION: The patient appears to be doing well now. She has not had any recurrence of her gas bloating, though she is somewhat more distended today but is soft and without significant tenderness. She is asking about discharge home. PLAN: At counseled the patient that we need to have her off the oxygen before she can be discharged, and I removed her oxygen, which was at a very low rate while I was examining her, and she settled around 94% as far as saturation goes. As long as she can tolerate her continued full liquid diet and her oxygen saturations are fine, I would anticipate that she could be discharged in the morning.
[2019-04-08] MEDS: FLUTICASONE PROP 0.05% NASAL SPRAY 16 GM (FLONASE) PRN (19:42)
[2019-04-09 02:00] VITALS: BP 155/81
[2019-04-09] MEDS: ADVAIR HFA 115/21MCG INHALER INH SCH (08:28)
[2019-04-09 08:29] VITALS: O2SAT 93
[2019-04-09] MEDS: NORCO, ANEXSIA 5/325MG TABLET (HYDROcodone/ACETAMINOPHEN) PO PRN (08:40)
[2019-04-09] MEDS: ARIPiprazole 2 MG TAB PO SCH (09:59)
[2019-04-09] MEDS: ENOXAPARIN 40 MG/0.4 ML SYRINGE (J1650) SC SCH (09:59)
[2019-04-09] MEDS: PANTOPRAZOLE 40MG INJ (PROTONIX) (C9113) IV SCH (09:59)
[2019-04-09] MEDS: GABAPENTIN 400 MG CAP PO SCH ×2 (09:59→16:39)
[2019-04-09 10:00] VITALS: BP 131/63
[2019-04-09 10:01] VITALS: BP 131/63
[2019-04-09] MEDS: ATENOLOL 25 MG TAB PO SCH (10:01)
[2019-04-09 14:00] VITALS: BP 151/83
--- NOTE | 2019-04-09 16:53 | REP ---
CHEST, SINGLE VIEW: Single view of the chest is performed and compared to prior study of 04/05/2019. The nasogastric tube has been removed. There again appear to be mild bilateral effusions with adjacent patchy parenchymal opacity in each lung base. These findings have mildly improved since the prior study. Heart and mediastinum are unchanged. Electronically Signed by Fan Dick MD 04/10/2019 05:00 P
[2019-04-09] MEDS ORDERED: HYDR-4571 PO (16:57)
--- NOTE | 2019-04-10 10:58 | IPN ---
DATE: 04/09/2019 HISTORY: Patient is now postoperative day #9 from laparoscopic repair of a large paraesophageal hiatal hernia with a Kaia fundoplication. She had some gas and bloating over the weekend which was treated with nasogastric decompression. She has now been taking a liquid diet for several days and is at the full liquid stage. She reports that she is taking this diet well and having some bowel movements and flatus. She reports today that she has been able to belch. Vital signs show that she has been afebrile over the past 24 hours. Her pulse is in the 70s and 80s and blood pressure has come down nicely. Intake and output shows that yesterday she had 1300 recorded in with 1600 recorded out. PHYSICAL EXAMINATION: The patient is alert and comfortable. She is breathing easily on room air. She denies any discomfort. The abdomen is somewhat protuberant, but she has bowel sounds present and the abdomen is soft and without significant tenderness. Her incisions are all healing very well. She has no new blood tests, but she did have a chest x-ray this morning. The x-ray shows that her lungs appear clear with some minimal atelectasis in the bases. Her effusion on the left has improved significantly. IMPRESSION: The patient is tolerating a full liquid diet with an excellent urine output. She denies any pain and reports that she has been able to belch some today. Her lungs looked improved following 2 days of diuresis. PLAN: The patient will be discharged home. I advised her to remain on a full-liquid to very soft diet. She should continue this for at least the next few days and can then consider advancing to regular food, though she was advised to chew well and take small bites. I will send in a prescription for a few [place] tablets that she can take on an as-needed basis. Otherwise, she will resume all of her usual medications. She can shower ad riky. She can pursue light activity as tolerated. I have asked her to follow up with me in 10-14 days in the office. She should call sooner for any problems.
[2019-04-10] MEDS ORDERED: ZOFR4TAB16 PO (19:07)
== END 2019-04-09 18:01 | disposition home or self-care (01) | DRG 328 ==
LOC: M OR 03-31 08:21 → EDSTATUS 03-31 10:45 → M MSPAV 03-31 19:36
PROVIDERS: ADMIT Surgery; ATTEND Surgery
PROC: 8E0W4CZ Robotic Assisted Procedure of Trunk Region, Percutaneous Endoscopic Approach (ICD-10-PCS; 2019-03-31)
PROC: 0BUT4JZ Supplement Diaphragm with Synthetic Substitute, Percutaneous Endoscopic Approach (ICD-10-PCS; principal; 2019-03-31 10:40)
DX: K44.0 Diaphragmatic hernia with obstruction, without gangrene (principal); Z79.899 Other long term (current) drug therapy; Z88.5 Allergy status to narcotic agent; I10 Essential (primary) hypertension; E78.00 Pure hypercholesterolemia, unspecified; F41.9 Anxiety disorder, unspecified; F32.9 Major depressive disorder, single episode, unspecified; J44.9 Chronic obstructive pulmonary disease, unspecified; M54.5 Low back pain; Z87.891 Personal history of nicotine dependence; D64.9 Anemia, unspecified

== ENCOUNTER → 2019-03-27 | Outpatient (CLI) | payer OTHER ==
[2019-03-27 17:04] LABS: BASO % 0.4 % (0.0-1.0); HEMATOCRIT 36.8 % (36.0-47.0); HEMOGLOBIN 10.5 g/dl (12.0-15.5); LYMPH # 1.5 10^3/uL (1.5-5.0); LYMPH % 27.7 % (24.0-44.0); MEAN CORPUSCULAR HGB CONC 28.5 g/dl (32.0-36.5); MEAN CORPUSCULAR VOLUME 73.5 fl (80.0-96.0); MONO # 0.4 10^3/uL (0.0-0.8); MONO % 7.3 % (0.0-5.0); NEUTROPHILS # 3.5 10^3/uL (1.5-8.5); NEUTROPHILS % 63.9 % (36.0-66.0); PLATELET COUNT, AUTOMATED 200 10^3/uL (150-450); RED BLOOD COUNT 5.01 10^6/uL (4.00-5.40); WHITE BLOOD COUNT 5.5 10^3/uL (4.0-10.0)
== END ==
LOC: M LAB 16:22
PROVIDERS: ATTEND Physician Assistant
DX: D64.9 Anemia, unspecified (principal)

== ENCOUNTER 2019-04-25 22:10 | Emergency (ER) | payer MEDICARE, OTHER ==
[~2019-04-25] VITALS: Ht 162.6 cm; Wt 74.6 kg
[~2019-04-25 22:10] MED LIST changes: -FLON1SPR; +FLON1SPR NARES; +HYDR-4571 PO; +ZOFR4TAB16 PO
[2019-04-25] MEDS ORDERED: NS 1,000 ML IV ONE (22:45)
[2019-04-25] MEDS ORDERED: PROMETHAZINE INJ 25 MG/ML VIAL (J2550) IV ONE (22:45)
[2019-04-25 22:48] LABS: BASO % 0.3 % (0.0-1.0); HEMATOCRIT 40.9 % (36.0-47.0); HEMOGLOBIN 11.9 g/dl (12.0-15.5); LYMPH # 1.1 10^3/uL (1.5-5.0); LYMPH % 17.9 % (24.0-44.0); MEAN CORPUSCULAR HEMOGLOBIN 20.7 pg (27.0-33.0); MEAN CORPUSCULAR HGB CONC 29.1 g/dl (32.0-36.5); MEAN CORPUSCULAR VOLUME 71.1 fl (80.0-96.0); MONO # 0.4 10^3/uL (0.0-0.8); MONO % 6.8 % (0.0-5.0); NEUTROPHILS # 4.6 10^3/uL (1.5-8.5); NEUTROPHILS % 74.8 % (36.0-66.0); PLATELET COUNT, AUTOMATED 214 10^3/uL (150-450); RED BLOOD COUNT 5.75 10^6/uL (4.00-5.40); WHITE BLOOD COUNT 6.2 10^3/uL (4.0-10.0)
[2019-04-25 23:15] LABS: ALBUMIN 4.1 GM/DL (3.2-5.2); ALT/SGPT 20 U/L (12-78); BILIRUBIN,DIRECT 0.3 MG/DL (0.0-0.2); BILIRUBIN,TOTAL 0.7 MG/DL (0.2-1.0); BLOOD UREA NITROGEN 19 MG/DL (7-18); CALCIUM LEVEL 9.4 MG/DL (8.8-10.2); CARBON DIOXIDE LEVEL 28 MEQ/L (21-32); CHLORIDE LEVEL 104 MEQ/L (98-107); CREATININE FOR GFR 0.73 MG/DL (0.55-1.30); GLOMERULAR FILTRATION RATE > 60.0 (>39); GLUCOSE, FASTING 126 MG/DL (70-100); LIPASE 120 U/L (73-393); POTASSIUM SERUM 3.8 MEQ/L (3.5-5.1); SODIUM LEVEL 139 MEQ/L (136-145); TOTAL PROTEIN 7.3 GM/DL (6.4-8.2)
[2019-04-25 23:30] VITALS: BP 168/71
[2019-04-25] MEDS ORDERED: PROM25TA12 PO (23:46)
--- NOTE | 2019-04-26 08:50 | REP ---
Acute abdominal series four views including PA chest, upright view of the abdomen and two supine views of the abdomen: PA chest: Comparison is 04/09/2019. The previous bilateral pleural effusions have resolved. The lung hurtado are clear. Cardiac size is normal. The arsenio, mediastinum, skeletal structures are unremarkable. There is no free subdiaphragmatic air. Impression: Negative PA chest. The previous bilateral pleural effusions have resolved. Abdomen, supine upright views: Comparison is 04/05/2019. The previous nasogastric tube has been removed. The bowel gas pattern is normal. There is a large volume of ingested material in the stomach. There are no calcifications. There is multilevel degenerative disc disease in the lumbar spine. Impression: Normal bowel gas pattern. Large volume of ingested material in the stomach. Multilevel lumbar degenerative disc disease. Electronically Signed by Fan Low MD 04/26/2019 08:41 A
[2019-04-26] MEDS ORDERED: GABA-1171 PO (23:14)
[2019-04-26] MEDS ORDERED: ACET-908 PO (23:14)
[2019-04-26] MEDS ORDERED: PRAV40TA2 PO (23:14)
[2019-04-26] MEDS ORDERED: ZOFR4TAB16 PO (23:14)
== END 2019-04-26 00:07 | disposition home or self-care (01) ==
LOC: M ED 22:10
DX: R11.0 Nausea (principal); I10 Essential (primary) hypertension; Z79.899 Other long term (current) drug therapy; Z88.5 Allergy status to narcotic agent

== ENCOUNTER 2019-04-26 18:48 | Inpatient (IN) | payer MEDICARE ==
[~2019-04-26] VITALS: Ht 162.6 cm; Wt 72.9 kg
[~2019-04-26 18:48] MED LIST changes: +PROM25TA12 PO
[2019-04-26] MEDS ORDERED: PROMETHAZINE INJ 25 MG/ML VIAL (J2550) IV ONE (19:30)
[2019-04-26] MEDS ORDERED: NS 1,000 ML IV ONE (19:30)
[2019-04-26 19:51] LABS: BASO % 0.4 % (0.0-1.0); HEMATOCRIT 39.1 % (36.0-47.0); HEMOGLOBIN 11.4 g/dl (12.0-15.5); LYMPH # 0.9 10^3/uL (1.5-5.0); LYMPH % 18.4 % (24.0-44.0); MEAN CORPUSCULAR HEMOGLOBIN 20.7 pg (27.0-33.0); MEAN CORPUSCULAR HGB CONC 29.2 g/dl (32.0-36.5); MEAN CORPUSCULAR VOLUME 71.1 fl (80.0-96.0); MONO # 0.3 10^3/uL (0.0-0.8); MONO % 6.6 % (0.0-5.0); NEUTROPHILS # 3.5 10^3/uL (1.5-8.5); NEUTROPHILS % 74.2 % (36.0-66.0); PLATELET COUNT, AUTOMATED 169 10^3/uL (150-450); WHITE BLOOD COUNT 4.7 10^3/uL (4.0-10.0)
[2019-04-26 20:14] LABS: ALBUMIN 3.9 GM/DL (3.2-5.2); BILIRUBIN,DIRECT 0.3 MG/DL (0.0-0.2); BILIRUBIN,TOTAL 0.6 MG/DL (0.2-1.0); TOTAL PROTEIN 6.9 GM/DL (6.4-8.2)
[2019-04-26] MEDS ORDERED: ISOVUE-370 76% 100ML VIAL (Q9967) As Ordered ONE (20:26)
--- NOTE | 2019-04-26 22:00 | REPVR ---
PROCEDURE INFORMATION: Exam: CT Abdomen and pelvis with contrast Exam date and time: 04/26/2019 8:37 PM Clinical history: 68 years old, female; Nausea; Additional info: Nausea and vomiting TECHNIQUE: Imaging protocol: Computed tomography of the abdomen and pelvis with intravenous contrast. Radiation optimization: All CT scans at this facility use at least one of these dose optimization techniques: automated exposure control; mA and/or kV adjustment per patient size (includes targeted exams where dose is matched to clinical indication); or iterative reconstruction. Contrast material: ISOVUE 370; Contrast volume: 100 ml; Contrast route: IV; COMPARISON: CR Abdomen,Flat Upright,PA CHEST 04/25/2019 11:15 PM FINDINGS: Mediastinum: Small to moderate hiatal hernia. Liver: There is regions of linear low density at the left hepatic lobe measuring up to 5 cm. No mass effect upon adjacent vascular structures. Gallbladder and bile ducts: Normal. No calcified stones. No ductal dilation. Pancreas: There is pancreatic atrophy. Spleen: Normal. No splenomegaly. Adrenals: Normal. No mass. Kidneys and ureters: Normal. No hydronephrosis. Stomach and bowel: Diverticulosis without diverticulitis. Appendix: No evidence of appendicitis. Intraperitoneal space: At the left upper quadrant, there is peripheral mesenteric infiltration measuring up to 5 cm. Vasculature: Vascular calcification. Lymph nodes: Unremarkable. No enlarged lymph nodes. Bladder: Unremarkable as visualized. Reproductive: Unremarkable as visualized. Bones/joints: There are degenerative changes involving the spine. Soft tissues: Small fat containing umbilical hernia. IMPRESSION: 1. 5 cm region of mesenteric infiltration of the left upper quadrant, suspect omental infarction. 2. Irregular linear areas of low density involving the left hepatic lobe measuring up to 5 cm. No mass effect upon adjacent vascular structures. If there is history of recent trauma, laceration may be considered. Region of scarring or focal fatty infiltration may also be considered. Correlation with hepatic protocol MRI as clinically warranted. 3. Additional findings as above. Electronically signed by: Epifanio Farr On 04/26/2019 22:00:35 PM
[2019-04-26] MEDS ORDERED: ONDANSETRON 4MG/2ML VIAL (J2405) IV ONE (22:30)
[2019-04-26] MEDS ORDERED: ALBUTEROL SULFATE 2.5 MG/0.5 ML INH NEB SOLN NEB PRN (23:00)
[2019-04-26] MEDS ORDERED: ZOFR4TAB16 PO (23:14)
[2019-04-26] MEDS ORDERED: PRAV40TA2 PO (23:14)
[2019-04-26] MEDS ORDERED: ACET-908 PO (23:14)
[2019-04-26] MEDS ORDERED: GABA-1171 PO (23:14)
[2019-04-27] VITALS (8 sets, daily range): BP systolic 136–188; BP diastolic 72–98
[2019-04-27] MEDS: METOCLOPRAMIDE INJ 10MG/2ML VIAL (J2765) IV SCH ×4 (00:10→17:59)
[2019-04-27] MEDS: LR 1,000 ML IV SCH ×3 (00:10→17:59)
[2019-04-27] MEDS: KETOROLAC 30 MG/ML VIAL (J1885) IV PRN ×3 (00:20→22:14)
[2019-04-27] MEDS: ADVAIR HFA 115/21MCG INHALER INH SCH ×2 (07:33→20:32)
[2019-04-27 07:40] LABS: BASO % 0.2 % (0.0-1.0); HEMATOCRIT 34.8 % (36.0-47.0); HEMOGLOBIN 10.2 g/dl (12.0-15.5); LYMPH % 23.3 % (24.0-44.0); MEAN CORPUSCULAR HEMOGLOBIN 20.9 pg (27.0-33.0); MEAN CORPUSCULAR HGB CONC 29.3 g/dl (32.0-36.5); MEAN CORPUSCULAR VOLUME 71.2 fl (80.0-96.0); MONO # 0.3 10^3/uL (0.0-0.8); MONO % 7.3 % (0.0-5.0); NEUTROPHILS % 68.7 % (36.0-66.0); PLATELET COUNT, AUTOMATED 166 10^3/uL (150-450); RED BLOOD COUNT 4.89 10^6/uL (4.00-5.40); WHITE BLOOD COUNT 4.4 10^3/uL (4.0-10.0)
--- NOTE | 2019-04-27 08:16 | ECGEPIP ---
[facility] - ED Test Date: 2019-04-26 Pat Name: LIAN MIRANDA Department: Room: [place] [address] Gender: Female Jr. Java Developer: YOLANDE : [id number] Requested By: JUNIE Ott Order Number: [id number] Reading MD: Katie Mcmahon Measurements Intervals [place] Rate: 85 P: 53 TX: 176 QRS: 24 QRSD: 96 T: 54 QT: 384 QTc: 457 Interpretive Statements SINUS RHYTHM NSTTW abnormalities No prior Electronically Signed on 04-27-2019 8:15:30 EDT by Katie Mcmahon
[2019-04-27 08:19] LABS: BLOOD UREA NITROGEN 8 MG/DL (7-18); CALCIUM LEVEL 8.7 MG/DL (8.8-10.2); CARBON DIOXIDE LEVEL 28 MEQ/L (21-32); CHLORIDE LEVEL 105 MEQ/L (98-107); CREATININE FOR GFR 0.56 MG/DL (0.55-1.30); GLOMERULAR FILTRATION RATE > 60.0 (>39); GLUCOSE, FASTING 91 MG/DL (70-100); POTASSIUM SERUM 3.6 MEQ/L (3.5-5.1); SODIUM LEVEL 141 MEQ/L (136-145)
--- NOTE | 2019-04-27 08:34 | REP ---
Supine AP abdomen two views: Comparison is 04/25/2019. The bowel gas pattern is normal. The volume of ingested material in the stomach has decreased. There are no calcifications. There is multilevel degenerative disc disease in the lumbar spine, unchanged. The bladder is opacified. This is likely from the CT scan performed earlier this same date. Impression: Normal bowel gas pattern. Electronically Signed by Fan Low MD 04/27/2019 08:26 A
[2019-04-27] MEDS: PANTOPRAZOLE 40MG INJ (PROTONIX) (C9113) IV SCH (08:49)
[2019-04-27] MEDS: ONDANSETRON 4MG/2ML VIAL (J2405) IV PRN ×2 (08:49→16:03)
[2019-04-27] MEDS: ATENOLOL 25 MG TAB PO SCH (09:00)
[2019-04-27] MEDS ORDERED: PREVNAR 13 VACCINE SYRINGE (CPT CODE:90670) IM ONE (09:00)
[2019-04-27] MEDS: LACTULOSE 20 GM/30 ML SYRUP UD PO SCH ×2 (13:05→20:27)
[2019-04-27] MEDS: VENLAFAXINE **XR** 75MG CAPSULE PO SCH (13:05)
--- NOTE | 2019-04-27 15:57 | IPN ---
DATE: 04/27/2019 HISTORY: Patient was admitted late last evening with history of nausea and some dry heaves, which persisted despite antiemetics. She is about three weeks postoperative from a robotic-assisted laparoscopic repair of an incarcerated hiatal hernia with a Kaia fundoplication. She has had symptoms that sound very much like a gastric outlet obstruction or poor emptying. On CT scan last evening she appeared to have a large amount of food residue within the stomach, though she had been on clear liquids for the previous day. The stomach was not particularly distended, but was fairly full. She has been kept nothing by mouth and provided with antiemetics and antinausea medications. Vital signs show that she has been afebrile since admission. Her pulse is in the upper eight 70s to high 80s generally. Her blood pressure has tended to be quite high, though it has been better today than it was last night when the systolic was up in the 200s for a time. Intake and output show that yesterday she had a liter of intravenous (IV) fluids recorded and no urine output noted. Today she has a urine output of 900 mL recorded so far. She has 750 mL of IV fluid recorded to this point. PHYSICAL EXAMINATION: The patient is lying quietly in the hospital bed. She is alert and appears oriented. She does complain of nausea still. Heart exam shows a regular rate and rhythm. The lungs are clear to auscultation. The abdomen shows active bowel sounds. The abdomen is soft and without significant tenderness, though she claims that it makes her feel a little more nauseous when I am palpating in the epigastrium. Laboratory studies today show a white count of 4, hemoglobin of 10, hematocrit of 35 and a platelet count of 166,000. Differential count shows 69% neutrophils, 23% lymphocytes, 7% monocytes. Chemistry profile is entirely normal. A KUB done this morning was read by the radiologist as showing a normal bowel gas pattern. He reported that the volume of ingested material in the stomach seemed to have decreased. IMPRESSION: Patient continues to complain of nausea, though her stomach today does not appear to be distended. Her labs are normal. PLAN: Patient will be kept nothing by mouth other than some medications. I will restart her Flonase at her request. I will also resume her aripiprazole, gabapentin, and venlafaxine. She feels, by her report, a little constipated and I will also give her some lactulose syrup to see if this will have a desired laxative effect. I am going to schedule her for an upper gastrointestinal (GI) series tomorrow to see what this will tell us about her gastric emptying. MARIANELA
[2019-04-27] MEDS: GABAPENTIN 100 MG CAP PO SCH ×2 (16:02→20:27)
[2019-04-28] MEDS: METOCLOPRAMIDE INJ 10MG/2ML VIAL (J2765) IV SCH ×4 (00:05→18:11)
[2019-04-28 02:00] VITALS: BP 146/64
[2019-04-28] MEDS: LR 1,000 ML IV SCH ×2 (05:03→22:00)
[2019-04-28 06:00] VITALS: BP 146/76
[2019-04-28] MEDS: ADVAIR HFA 115/21MCG INHALER INH SCH ×2 (07:42→20:00)
[2019-04-28] MEDS ORDERED: E-Z-PAQUE 96% w/w SUSP 176GM BTL As Ordered ONE (09:00)
[2019-04-28] MEDS: GABAPENTIN 100 MG CAP PO SCH ×3 (10:27→22:00)
[2019-04-28] MEDS: ATENOLOL 25 MG TAB PO SCH (10:28)
[2019-04-28] MEDS: ONDANSETRON 4MG/2ML VIAL (J2405) IV PRN (10:28)
[2019-04-28] MEDS: PANTOPRAZOLE 40MG INJ (PROTONIX) (C9113) IV SCH (10:28)
[2019-04-28] MEDS: VENLAFAXINE **XR** 75MG CAPSULE PO SCH (10:28)
[2019-04-28] MEDS: ARIPiprazole 2 MG TAB PO SCH (10:28)
[2019-04-28] MEDS: FLUTICASONE PROP 0.05% NASAL SPRAY 16 GM (FLONASE) NARES PRN ×2 (10:28→22:03)
[2019-04-28] MEDS: KETOROLAC 30 MG/ML VIAL (J1885) IV PRN (10:38)
[2019-04-28 14:00] VITALS: BP 178/93
--- NOTE | 2019-04-28 14:54 | REP ---
UPPER GI SINGLE CONTRAST The procedure was performed under the direct supervision of Dr. Dick. The images were reviewed with Dr. Dick. The radar repairer film shows no organomegaly or pathological masses. The intestinal gas pattern is nonspecific. Liquid barium was given in the right lateral recumbent position. The oral and pharyngeal stages of deglutition are unremarkable. There are esophageal transport there are tertiary waves demonstrated. There is no evidence of esophagitis stricture or mucosal ring. The patient is status post hiatal hernia repair. Within the stomach there is a moderate amount of retained ingested material which limits evaluation. The stomach is grossly normal. There is slow passage of barium through the pylorus. There is no evidence of stricture mass or ulcer. This may be due to pyloric spasm. The duodenum is grossly normal. The mucosal folds are smooth and regular. There is no evidence of duodenitis pancreatitis peptic ulcer disease or neoplasm. There is a small diverticulum seen in the second portion of the duodenum. Visualized portion of the proximal small bowel appears normal in course and caliber. Impression: Moderate amount of retained food within the stomach. There is slow passage of contrast through the pylorus. There is no evidence of stricture, mass or ulcer. This may be due to pyloric spasm. 3.1 minutes of fluoroscopy time was utilized for this procedure. Electronically Signed by MELODY Smith 04/28/2019 10:02 A Electronically Signed by Fan Dick MD 04/28/2019 02:45 P
[2019-04-28] MEDS: MORPHINE 4 MG/ML 1ML VIAL/SYRINGE (J2270) IV PRN ×2 (15:39→20:19)
[2019-04-28 17:30] VITALS: BP 180/92
[2019-04-28 20:10] VITALS: BP 158/107
[2019-04-29] MEDS: METOCLOPRAMIDE INJ 10MG/2ML VIAL (J2765) IV SCH ×4 (00:12→17:07)
[2019-04-29 05:51] VITALS: BP 139/75
[2019-04-29] MEDS: ADVAIR HFA 115/21MCG INHALER INH SCH ×2 (08:00→19:54)
[2019-04-29] MEDS: PANTOPRAZOLE 40MG INJ (PROTONIX) (C9113) IV SCH (08:29)
[2019-04-29] MEDS: GABAPENTIN 100 MG CAP PO SCH ×4 (08:30→21:00)
[2019-04-29] MEDS: VENLAFAXINE **XR** 75MG CAPSULE PO SCH ×2 (08:30→08:38)
[2019-04-29] MEDS: ONDANSETRON 4MG/2ML VIAL (J2405) IV PRN (08:30)
[2019-04-29] MEDS: ARIPiprazole 2 MG TAB PO SCH ×2 (08:30→08:38)
[2019-04-29] MEDS: ATENOLOL 25 MG TAB PO SCH ×2 (08:31→08:38)
--- NOTE | 2019-04-29 09:22 | IPN ---
DATE: 04/28/2019 HISTORY: The patient is status post a laparoscopic reduction and repair of a incarcerated esophageal hernia with creation of a Kaia fundoplication approximately 4 weeks ago. She has had some persistent symptoms postop suggestive of a gastric outlet obstruction. She was admitted on the with nausea and sensation of bloating and discomfort. This morning the patient underwent testing with a upper GI series. Vital signs show that she has been afebrile over the past 24 hours. Her pulse is in the 60s to about 80, and her blood pressure had been pretty good during the course of the day but this evening increased again to about 180 systolic. Intake and output shows that yesterday she had 750 mL recorded in with 1100 out, though clearly her IV intake was under reported. PHYSICAL EXAMINATION: The patient is lying quietly in the hospital bed. She complains of some persistent nausea but has had no emesis. She is alert and oriented. Abdomen is somewhat obese but soft and without significant tenderness. She does have active bowel sounds. The upper GI series images are reviewed. She does have an intact repair of her hiatal hernia. There is some debris within the stomach, which precludes complete examination of the gastric lining. The pyloric channel is narrowed but there is flow of contrast slowly into the duodenum and the duodenum itself looks normal. There is a duodenal diverticulum in the second portion. IMPRESSION: Patient has symptoms of gastric outlet obstruction. The barium swallow shows some narrowing at the pylorus. This may be related to her recent hiatal hernia repair, possibly related to vagus nerve injury. PLAN: The patient will be kept nothing by mouth other than a few sips of clear liquids if she chooses to try this. I will need to plan an upper endoscopy to look for any anatomic abnormality in the pylorus. It may be reasonable to consider balloon dilation to see if this would be of benefit, though it may be that she will need a pyloroplasty. MARIANELA
--- NOTE | 2019-04-29 10:16 | REP ---
KUB: Single view. HISTORY: Assess gastric emptying. Comparison KUB study April 27, 2019. The patient is 1 day status post upper GI series in these images are compared as well. FINDINGS: The bulk of the barium administered the previous day is in the distal small bowel and right colon. There is some residual barium in the stomach but no stomach distension is seen. No small or large bowel dilation. IMPRESSION: No significant gastric contrast retention. Electronically Signed by Ranjan Mccain MD 04/29/2019 10:44 A
[2019-04-29] MEDS: LR 1,000 ML IV SCH ×2 (10:19→21:16)
[2019-04-29 14:00] VITALS: BP 158/72
[2019-04-29] MEDS: ACETAMINOPHEN TAB 650MG DOSE (2X325MG) PO PRN (16:07)
[2019-04-29] MEDS: MORPHINE 4 MG/ML 1ML VIAL/SYRINGE (J2270) IV PRN (17:07)
[2019-04-29 20:18] VITALS: BP 165/86
[2019-04-29] MEDS: KETOROLAC 30 MG/ML VIAL (J1885) IV PRN (21:17)
[2019-04-30] MEDS: METOCLOPRAMIDE INJ 10MG/2ML VIAL (J2765) IV SCH ×5 (00:37→23:33)
[2019-04-30 05:52] VITALS: BP 157/78
[2019-04-30] MEDS: ACETAMINOPHEN TAB 650MG DOSE (2X325MG) PO PRN (05:59)
--- NOTE | 2019-04-30 07:19 | IPN ---
DATE: 04/29/2019 HISTORY: The patient continues to complain of persistent nausea. I offered her ice chips and sips of clear liquids and she has really taken nothing. She said when she took the ice chips she had a bad taste in her mouth. She keeps repeating that she just wants this taken care of and I have counseled her that it is not clear what will be necessary at this point to alleviate her nausea and apparent gastric emptying difficulties, but that the workup is continuing. Vital signs show that she has been afebrile over the past 24 hours. Her pulse is in the 60s to 80s. Blood pressure is today under good control and her room air pulse oximetry is normal. Intake and output show that yesterday she had 975 recorded in with 1750 recorded out, although calculating her intake based on her IV rate would suggest a much higher volume was infused. She denies any bowel movements but has had some flatus. PHYSICAL EXAMINATION: The patient is lying quietly on the hospital bed. She is alert and appears mildly uncomfortable. Heart exam shows a regular rhythm. The abdomen is obese but soft and without significant tenderness. Imaging yesterday had shown suggestion of some delayed gastric emptying with a prominent and somewhat narrowed pylorus. A KUB this morning showed a small amount of residual contrast within the stomach still with contrast through much of the distal small bowel and into the right colon. The stomach itself was not distended. IMPRESSION: The patient continues to complain of persistent nausea. She remains on routine Protonix, Reglan and p.r.n. Zofran. She is asking for more morphine and I advised her that I would prefer that she not start taking morphine as she will just come to the tolerance and this may also cloud the issue as the cause of her nausea and her delayed gastric emptying. PLAN: I counseled the patient that I believe she should have a upper endoscopy as our next step. I will have my staff work on scheduling a time for this to be done in the next day or two. I encouraged her to try the sips of clear liquids if she could. I will order a physical therapy evaluation to see if we can encourage her to be up and about more. Once we have more information from the endoscopy, it may be reasonable to consider some sort of surgical approach to her poor gastric emptying. MARIANELA
[2019-04-30] MEDS: ADVAIR HFA 115/21MCG INHALER INH SCH ×2 (07:48→20:45)
[2019-04-30] MEDS: GABAPENTIN 100 MG CAP PO SCH ×4 (09:00→20:11)
[2019-04-30] MEDS: VENLAFAXINE **XR** 75MG CAPSULE PO SCH (09:00)
[2019-04-30] MEDS: ARIPiprazole 2 MG TAB PO SCH (09:00)
[2019-04-30] MEDS: PANTOPRAZOLE 40MG INJ (PROTONIX) (C9113) IV SCH (09:11)
[2019-04-30] MEDS: ATENOLOL 25 MG TAB PO SCH (09:12)
[2019-04-30 09:28] LABS: BASO % 0.4 % (0.0-1.0); HEMATOCRIT 37.6 % (36.0-47.0); HEMOGLOBIN 11.5 g/dl (12.0-15.5); LYMPH # 0.8 10^3/uL (1.5-5.0); LYMPH % 14.7 % (24.0-44.0); MEAN CORPUSCULAR HEMOGLOBIN 21.1 pg (27.0-33.0); MEAN CORPUSCULAR HGB CONC 30.6 g/dl (32.0-36.5); MEAN CORPUSCULAR VOLUME 68.9 fl (80.0-96.0); MONO # 0.5 10^3/uL (0.0-0.8); MONO % 8.8 % (0.0-5.0); NEUTROPHILS # 4.2 10^3/uL (1.5-8.5); NEUTROPHILS % 75.6 % (36.0-66.0); PLATELET COUNT, AUTOMATED 166 10^3/uL (150-450); RED BLOOD COUNT 5.46 10^6/uL (4.00-5.40); WHITE BLOOD COUNT 5.6 10^3/uL (4.0-10.0)
[2019-04-30 09:55] LABS: ALT/SGPT 20 U/L (12-78); BILIRUBIN,TOTAL 0.7 MG/DL (0.2-1.0); BLOOD UREA NITROGEN 10 MG/DL (7-18); CALCIUM LEVEL 9.2 MG/DL (8.8-10.2); CARBON DIOXIDE LEVEL 29 MEQ/L (21-32); CHLORIDE LEVEL 92 MEQ/L (98-107); CREATININE FOR GFR 0.62 MG/DL (0.55-1.30); GLOMERULAR FILTRATION RATE > 60.0 (>39); GLUCOSE, FASTING 99 MG/DL (70-100); POTASSIUM SERUM 3.1 MEQ/L (3.5-5.1); SODIUM LEVEL 132 MEQ/L (136-145)
[2019-04-30 09:56] LABS: ALBUMIN 3.5 GM/DL (3.2-5.2); TOTAL PROTEIN 6.7 GM/DL (6.4-8.2)
[2019-04-30] MEDS: LR 1,000 ML IV SCH (10:53)
[2019-04-30 14:00] VITALS: BP 178/95
[2019-04-30] MEDS ORDERED: POTASSIUM CHLORIDE INJ 40 MEQ in LR 1,000 ML IV SCH (17:00)
[2019-04-30] MEDS: POTASSIUM CHLORIDE INJ 40 MEQ in LR 1,000 ML IV SCH (18:05)
[2019-04-30] MEDS: MORPHINE 4 MG/ML 1ML VIAL/SYRINGE (J2270) IV PRN (20:11)
[2019-04-30 22:00] VITALS: BP 180/90
[2019-04-30] MEDS: KETOROLAC 30 MG/ML VIAL (J1885) IV PRN (23:34)
[2019-05-01] MEDS: METOCLOPRAMIDE INJ 10MG/2ML VIAL (J2765) IV SCH ×3 (05:55→17:10)
[2019-05-01] MEDS: KETOROLAC 30 MG/ML VIAL (J1885) IV PRN ×2 (05:56→18:42)
[2019-05-01 06:00] VITALS: BP 183/94
[2019-05-01] MEDS: ADVAIR HFA 115/21MCG INHALER INH SCH ×2 (06:25→18:09)
[2019-05-01] MEDS: POTASSIUM CHLORIDE INJ 40 MEQ in LR 1,000 ML IV SCH ×2 (08:00→22:09)
[2019-05-01] MEDS: PANTOPRAZOLE 40MG INJ (PROTONIX) (C9113) IV SCH (08:01)
[2019-05-01] MEDS: ATENOLOL 25 MG TAB PO SCH (08:02)
[2019-05-01] MEDS: VENLAFAXINE **XR** 75MG CAPSULE PO SCH (08:08)
[2019-05-01] MEDS: GABAPENTIN 100 MG CAP PO SCH ×3 (08:08→20:57)
[2019-05-01] MEDS: ARIPiprazole 2 MG TAB PO SCH (08:08)
--- NOTE | 2019-05-01 11:46 | IPN ---
DATE: 04/30/2019 HISTORY: The patient is now 1 month postop from a robotic-assisted laparoscopic repair of a large paraesophageal hiatal hernia. She was admitted to the hospital on April 26 with signs and symptoms of a gastric outlet obstruction. She had an upper GI series on April 28 that showed some retained material in the stomach and slow flow of contrast through the pylorus. She had a followup x-ray yesterday morning that showed a small amount of residual contrast still within the stomach, but the bulk of the contrast was in the small bowel and into the right colon. The patient continues to complain of nausea persistently. Vital signs show that she has been afebrile over the past 24 hours. Her pulse has ranged in the 60s to low 80s and her blood pressure is largely well-controlled, but occasionally gets up into the 170s to low 180s. Intake and output show that yesterday she had 1800 in with 1600 out. PHYSICAL EXAMINATION: The patient is alert but appears uncomfortable. She is lying on her right side holding her stomach complaining of nausea. Heart exam shows a regular rate and rhythm. The abdomen is obese but soft. Laboratory studies show a white count of 6, hemoglobin of 12, hematocrit of 38 and platelet count of 166,000. Her differential count shows 76% neutrophils, 15% lymphocytes and 9% monocytes. Chemistry profile showed a sodium of 132, potassium 3.1, chloride 92, CO2 of 29, BUN of 10, creatinine 0.6 and glucose of 99. Liver function tests are normal. Total protein is 6.7 with an albumin of 3.5. IMPRESSION: The patient continues to have persistent nausea and a feeling of bloating. I have advised her that this may be related to a temporary or permanent injury of her vagus nerve which would lead to increased muscle tone in the pylorus with symptoms of an obstruction. I have recommended that we proceed with an upper endoscopy which we will schedule for tomorrow early in the day as possible. If there is no structural abnormality to account for her poor gastric emptying, then a pyloroplasty may be indicated to promote better drainage. She was counseled for the upper endoscopy and desires to proceed. MARIANELA
[2019-05-01] MEDS ORDERED: LIDOCAINE 2% INJ 100 MG/5 ML SDV (FOR ANES.) As Ordered ONE (13:19)
[2019-05-01] MEDS ORDERED: fentaNYL 100 MCG/2 ML INJECTION (J3010) As Ordered ONE (13:19)
[2019-05-01] MEDS ORDERED: PROPOFOL 200 MG/20 ML VIAL As Ordered ONE (13:19)
--- NOTE | 2019-05-01 13:55 | ROOR ---
Patient Name: Dianne Graham Procedure Date: 05/01/2019 1:15 PM Date of : 1950 Age: 68 Room: [facility] Gender: Female Note Status: Finalized Procedure: Upper GI endoscopy Indications: Assessment following Kaia fundoplication, Suspected pyloric stenosis Providers: Minor Pantoja MD Referring MD: Harini Romo NP Requesting Provider: Medicines: Monitored Anesthesia Care Complications: No immediate complications. Procedure: Pre-Anesthesia Assessment: - Prior to the procedure, a History and Physical was performed, and patient medications and allergies were reviewed. The patient is competent. The risks and benefits of the procedure and the sedation options and risks were discussed with the patient. All questions were answered and informed consent was obtained. Patient identification and proposed procedure were verified by the physician, the nurse and the anesthesiologist in the procedure room. Mental Status Examination: alert and oriented. CV Examination: regular rate and rhythm. Prophylactic Antibiotics: The patient does not require prophylactic antibiotics. Prior Anticoagulants: The patient has taken no previous anticoagulant or antiplatelet agents. ASA Grade Assessment: III - A patient with severe systemic disease. After reviewing the risks and benefits, the patient was deemed in satisfactory condition to undergo the procedure. The anesthesia plan was to use monitored anesthesia care (MAC). Immediately prior to administration of medications, the patient was re-assessed for adequacy to receive sedatives. The heart rate, respiratory rate, oxygen saturations, blood pressure, adequacy of pulmonary ventilation, and response to care were monitored throughout the procedure. The physical status of the patient was re-assessed after the procedure. The Endoscope was introduced through the mouth, and advanced to the second part of duodenum. The upper GI endoscopy was accomplished without difficulty. The patient tolerated the procedure well. Findings: The examined esophagus was normal. Patchy mildly erythematous mucosa without bleeding was found at the gastroesophageal junction. A medium amount of food (residue) was found in the gastric fundus. Due to the retained food the Kaia was not seen. A few small sessile polyps were found on the greater curvature of the stomach. The first portion of the duodenum and second portion of the duodenum were normal. The pylorus was closed on insertion of the scope. It was possible to advance the scope through the pylorus and down to the second part of the duodenum. On withdrawal of the scope no sign of pyloric stenosis, inflammation or ulceration was noted. Impression: - Normal esophagus. - Erythematous mucosa in the gastroesophageal junction. - A medium amount of food (residue) in the stomach. - A few gastric polyps. - Normal first portion of the duodenum and second portion of the duodenum. - No specimens collected. Recommendation: - Return patient to [facility] for [facility] care. Minor Pantoja MD Minor Pantoja MD 05/01/2019 1:54:44 PM Electronically signed by Minor Pantoja MD Number of Addenda: 0 Note Initiated On: 05/01/2019 1:15 PM Estimated Blood Loss: Estimated blood loss: none.
[2019-05-01 14:30] VITALS: BP 187/97
[2019-05-01 15:00] VITALS: BP 184/95
[2019-05-01 16:00] VITALS: BP 185/95
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
--- NOTE | 2019-05-01 17:55 | IPN ---
DATE: 05/01/2019 HISTORY: The patient had undergone a robotic-assisted laparoscopic repair of incarcerated hiatal hernia with Kaia fundoplication back on March 31. She has been having some symptoms consistent with gastric outlet obstruction. She was admitted on the April 26 with severe nausea and a sensation of fullness. She was noted to have a large amount of retained food in the stomach, though she had been nothing by mouth for at least a day before coming in. An upper GI series showed slow emptying of the stomach through a narrowed pylorus. She underwent endoscopy today that shows no anatomic abnormality of the pylorus. She still had some retained food debris within the stomach. Vital signs: She has been afebrile over the past 24 hours with a pulse in the 60s and 70s. Her blood pressure is a little high up into the 180s today. Intake and output shows that yesterday she had 1000 in with 1650 recorded out though clearly this under represents her IV intake. PHYSICAL EXAMINATION: The patient is alert and looks uncomfortable. Heart exam shows a regular rhythm. The lungs are clear. The abdomen is obese but soft. 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 I counseled the patient and her that this could be a temporary dysfunction related to pinching or twisting of the nerves but this could be a permanent problem related to transection of the vagus nerve or nerves. I have recommended that we proceed with a pyloroplasty. PLAN: I had discussed at some length the nature of the pyloroplasty with the patient and her . I advised them that this involves cutting open the muscle that regulates emptying of the stomach and then suturing this area closed in a way to leave the opening larger. There were counseled that the risks include but are not limited to bleeding, infection, scarring, adverse drug reaction, need for further surgery, injury to internal organ, bile reflux gastritis, dumping syndrome, and hernia. They had an opportunity to ask questions. They wish to proceed with the surgery as I have outlined it. I am hoping to use the DaVinci surgical robot which should be available later in the afternoon on May 02. If the DaVinci is not available then we may need to proceed to an open procedure, though I hope this will not be necessary. I will have the radiology department go ahead and place a PICC line which they did not get to this morning tomorrow so that we can start her on TPN tomorrow and keep her nothing by mouth for a day or two after the surgery. MARIANELA
[2019-05-01 20:27] VITALS: BP 166/94
[2019-05-01] MEDS: MORPHINE 4 MG/ML 1ML VIAL/SYRINGE (J2270) IV PRN (21:08)
[2019-05-02] MEDS: METOCLOPRAMIDE INJ 10MG/2ML VIAL (J2765) IV SCH ×5 (00:34→23:06)
[2019-05-02] MEDS: MORPHINE 4 MG/ML 1ML VIAL/SYRINGE (J2270) IV PRN ×3 (00:34→09:02)
[2019-05-02 06:24] LABS: BLOOD UREA NITROGEN 8 MG/DL (7-18); CALCIUM LEVEL 8.6 MG/DL (8.8-10.2); CARBON DIOXIDE LEVEL 29 MEQ/L (21-32); CHLORIDE LEVEL 97 MEQ/L (98-107); GLOMERULAR FILTRATION RATE > 60.0 (>39); GLUCOSE, FASTING 83 MG/DL (70-100); POTASSIUM SERUM 3.3 MEQ/L (3.5-5.1); SODIUM LEVEL 135 MEQ/L (136-145)
[2019-05-02 06:40] VITALS: BP 165/93
[2019-05-02] MEDS: ADVAIR HFA 115/21MCG INHALER INH SCH ×2 (08:00→18:34)
[2019-05-02] MEDS: VENLAFAXINE **XR** 75MG CAPSULE PO SCH (08:49)
[2019-05-02] MEDS: GABAPENTIN 100 MG CAP PO SCH ×3 (08:49→21:00)
[2019-05-02] MEDS: PANTOPRAZOLE 40MG INJ (PROTONIX) (C9113) IV SCH (08:49)
[2019-05-02] MEDS: ARIPiprazole 2 MG TAB PO SCH (08:49)
[2019-05-02] MEDS: ATENOLOL 25 MG TAB PO SCH (08:49)
[2019-05-02] MEDS: POTASSIUM CHLORIDE INJ 40 MEQ in LR 1,000 ML IV SCH (10:48)
[2019-05-02] MEDS ORDERED: cefoTEtan DISODIUM 2 GM in D5W MINI-BAG PLUS 50 ML IV ONE (13:00)
[2019-05-02 14:00] VITALS: BP 158/88
[2019-05-02] MEDS ORDERED: LIDOCAINE 1% MDV 20ML VIAL As Ordered ONE (15:20)
[2019-05-02] MEDS ORDERED: BUPIVACAINE HCL 0.25% 30 ML VIAL As Ordered ONE (16:44)
[2019-05-02] MEDS ORDERED: MIDAZOLAM INJ 2 MG/2 ML VIAL (J2250) As Ordered ONE (16:45)
[2019-05-02] MEDS ORDERED: fentaNYL 250 MCG/5 ML INJECTION (J3010) As Ordered ONE (16:45)
[2019-05-02] MEDS ORDERED: PROPOFOL 200 MG/20 ML VIAL As Ordered ONE (16:45)
[2019-05-02] MEDS ORDERED: LIDOCAINE 2% INJ 100 MG/5 ML SDV (FOR ANES.) As Ordered ONE (16:46)
[2019-05-02] MEDS ORDERED: ROCURONIUM BROMIDE 50 MG/5 ML VIAL As Ordered ONE ×3 (16:46→19:47)
[2019-05-02] MEDS ORDERED: ONDANSETRON 4MG/2ML VIAL (J2405) As Ordered ONE ×2 (16:46→21:27)
[2019-05-02] MEDS ORDERED: dexameTHASONE 4 MG/ML 1ML VIAL (J1100) As Ordered ONE (16:46)
[2019-05-02] MEDS ORDERED: cefoTEtan INJ 2GM VIAL (S0074 PER 500MG) As Ordered ONE (17:02)
[2019-05-02] MEDS ORDERED: LACRILUBE (AKWA TEARS) OPHTH OINT 3.5 GM As Ordered ONE (17:36)
[2019-05-02] MEDS ORDERED: KETOROLAC 60 MG/2 ML VIAL (J1885) As Ordered ONE (17:59)
[2019-05-02] MEDS: SODIUM CHLORIDE 0.9% INJ 10 ML SYR IV SCH (18:00)
[2019-05-02] MEDS ORDERED: AMINO AC/ELECTROLYTE/DEX/CALC 2,000 ML IV SCH (18:00)
[2019-05-02] MEDS ORDERED: FAT EMULSION IV 20% 500 ML IV SCH (18:00)
[2019-05-02] MEDS ORDERED: ACETAMINOPHEN 1000MG 100ML IV BTL (OFIRMEV) (J0131 PER 10MG) As Ordered ONE (18:30)
[2019-05-02] MEDS ORDERED: SUGAMMADEX SODIUM 500 MG/5 ML VIAL (BRIDION) As Ordered ONE (20:30)
[2019-05-02] MEDS ORDERED: fentaNYL 100 MCG/2 ML INJECTION (J3010) As Ordered ONE (20:35)
[2019-05-02] MEDS: LABETALOL HCL 100 MG/20 ML VIAL IV PRN ×2 (21:15→21:25)
[2019-05-02] MEDS ORDERED: LABETALOL HCL 100 MG/20 ML VIAL As Ordered ONE (21:17)
[2019-05-02] MEDS ORDERED: LR 1,000 ML IV SCH (21:30)
[2019-05-02] MEDS ORDERED: ONDANSETRON 4MG/2ML VIAL (J2405) IV PRN (21:30)
[2019-05-02] MEDS ORDERED: fentaNYL 100 MCG/2 ML INJECTION (J3010) IV PRN (21:30)
[2019-05-02] MEDS ORDERED: HYDROMORPHONE HCL 0.5 MG/ 0.5 ML SYRINGE (J1170 PER 1) IV PRN (21:30)
[2019-05-02] MEDS ORDERED: PERCOCET 5MG/325MG TAB PO PRN (21:30)
[2019-05-02 22:15] VITALS: BP 166/87
[2019-05-02] MEDS: LR 1,000 ML IV SCH (22:15)
[2019-05-02] MEDS: KETOROLAC 30 MG/ML VIAL (J1885) IV PRN (22:35)
[2019-05-02 22:45] VITALS: BP 157/81
[2019-05-02 23:45] VITALS: BP 154/80
[2019-05-03] VITALS (7 sets, daily range): BP systolic 152–166; BP diastolic 76–86
[2019-05-03] MEDS ORDERED: HumaLOG INSULIN (NovoLOG) PER UNIT SC SCH
[2019-05-03] MEDS: HumaLOG INSULIN (NovoLOG) PER UNIT SC SCH ×4 (00:44→18:26)
[2019-05-03] MEDS: ACETAMINOPHEN TAB 650MG DOSE (2X325MG) PO PRN (00:50)
[2019-05-03] MEDS ORDERED: PILL CUTTER 1 EACH XX PRN (02:15)
[2019-05-03] MEDS: PROMETHAZINE 25 MG TAB PO PRN ×3 (02:23→21:14)
[2019-05-03] MEDS: METOCLOPRAMIDE INJ 10MG/2ML VIAL (J2765) IV SCH ×3 (05:00→18:25)
[2019-05-03] MEDS: KETOROLAC 30 MG/ML VIAL (J1885) IV PRN ×2 (05:00→18:48)
[2019-05-03] MEDS ORDERED: cefoTEtan DISODIUM 2 GM in D5W MINI-BAG PLUS 50 ML IV SCH (05:30)
[2019-05-03] MEDS: SODIUM CHLORIDE 0.9% INJ 10 ML SYR IV SCH ×3 (05:42→18:38)
[2019-05-03] MEDS: MORPHINE 4 MG/ML 1ML VIAL/SYRINGE (J2270) IV PRN ×4 (05:51→21:14)
[2019-05-03 06:47] LABS: BASO % 0.3 % (0.0-1.0); EOS % 0.1 % (0.0-3.0); HEMATOCRIT 31.1 % (36.0-47.0); HEMOGLOBIN 9.4 g/dl (12.0-15.5); LYMPH # 0.9 10^3/uL (1.5-5.0); LYMPH % 11.2 % (24.0-44.0); MEAN CORPUSCULAR HEMOGLOBIN 20.7 pg (27.0-33.0); MEAN CORPUSCULAR HGB CONC 30.2 g/dl (32.0-36.5); MEAN CORPUSCULAR VOLUME 68.5 fl (80.0-96.0); MONO # 0.5 10^3/uL (0.0-0.8); MONO % 6.7 % (0.0-5.0); NEUTROPHILS # 6.1 10^3/uL (1.5-8.5); NEUTROPHILS % 81.3 % (36.0-66.0); PLATELET COUNT, AUTOMATED 151 10^3/uL (150-450); RED BLOOD COUNT 4.54 10^6/uL (4.00-5.40); WHITE BLOOD COUNT 7.6 10^3/uL (4.0-10.0)
[2019-05-03 07:08] LABS: ALBUMIN 2.9 GM/DL (3.2-5.2); BILIRUBIN,TOTAL 0.5 MG/DL (0.2-1.0); CALCIUM LEVEL 8.3 MG/DL (8.8-10.2); CREATININE FOR GFR 1.27 MG/DL (0.55-1.30); GLOMERULAR FILTRATION RATE 44.3 (>39); POTASSIUM SERUM 3.4 MEQ/L (3.5-5.1)
[2019-05-03] MEDS: ADVAIR HFA 115/21MCG INHALER INH SCH ×2 (07:49→19:51)
[2019-05-03] MEDS: ARIPiprazole 2 MG TAB PO SCH (08:12)
[2019-05-03] MEDS: GABAPENTIN 100 MG CAP PO SCH ×5 (08:12→21:14)
[2019-05-03] MEDS: ATENOLOL 25 MG TAB PO SCH (08:15)
[2019-05-03] MEDS: PANTOPRAZOLE 40MG INJ (PROTONIX) (C9113) IV SCH (08:15)
[2019-05-03] MEDS: VENLAFAXINE **XR** 75MG CAPSULE PO SCH (08:41)
--- NOTE | 2019-05-03 10:38 | IPN ---
DATE: 05/03/2019 HISTORY: The patient is now postop day #1 from a robotic-assisted laparoscopic pyloroplasty for gastric outlet obstruction following a laparoscopic repair of her paraesophageal hernia and a Kaia fundoplication. She has generally done well overnight. She is complaining of still some nausea and had a dose of Phenergan overnight. She remains on Reglan routinely and Zofran as needed, though she has not had any of that since surgery. She has not had any emesis. Right now, she is quite foggy mentally because she just had a dose of morphine. VITAL SIGNS: Show that she has been afebrile. Her pulse is in the 70s and her blood pressure is under good control in the 150s to 160s this morning. INTAKE AND OUTPUT: Show that yesterday she had 2600 recorded in with 1750 of urine output and 25 mL out of her drain. This morning, she has 600 mL of urine recorded with 60 out the drain. PHYSICAL EXAMINATION: The patient is propped up in the hospital bed. She is alert, but is a little foggy as noted as she just received some morphine. She is appropriate. She does report that she is still having some nausea. She had some pain across her lower abdomen in the area of her incisions. Abdominal exam shows the abdomen to be mildly protuberant. Her dressings are dry. The abdomen is soft without any undue tenderness. Her drain has a minimal amount of serosanguineous fluid. LABORATORY STUDIES: Show a white count of 8, hemoglobin 9, hematocrit 31 and her platelet count is 151,000. Her differential count shows 81% neutrophils, 11% lymphocytes and 7% monocytes. Chemistry profile shows sodium of 130, potassium 3.4, chloride 93, CO2 of 29, BUN of 11, creatinine 1.3 and a glucose of 168. Her total protein is 6.0 with albumin of 2.9. Amylase and lipase are normal. IMPRESSION: The patient overall appears to be doing well only about 12 hours out from her robotic-assisted pyloroplasty. PLAN: She will remain nothing by mouth (n.p.o.) other than some oral medications today. I will continue her total parenteral nutrition (TPN) and add a little additional sodium chloride to that. We will need to monitor her creatinine which is up today. She has fingersticks and sliding scale insulin ordered because of her TPN. Her blood sugar was up to 168 this morning. I explained to her why this is necessary. Dr. Dillon will be covering for the next 2 days as he is on for the weekend and I will be out of town Sunday for a . MARIANELA
[2019-05-03] MEDS: LR 1,000 ML IV SCH (16:20)
[2019-05-03] MEDS ORDERED: AMINO AC IV SCH (18:00)
[2019-05-03] MEDS ORDERED: CALC IV SCH (18:00)
[2019-05-03] MEDS ORDERED: ELECTROLYTE IV SCH (18:00)
[2019-05-03] MEDS ORDERED: FAT EMULSION IV 20% 500 ML IV SCH (18:00)
[2019-05-03] MEDS ORDERED: SODIUM CHLORIDE IV SCH (18:00)
[2019-05-03] MEDS ORDERED: DEX IV SCH (18:00)
[2019-05-03] MEDS: ENOXAPARIN 40 MG/0.4 ML SYRINGE (J1650) SC SCH (21:14)
[2019-05-04] VITALS (9 sets, daily range): BP systolic 155–192; BP diastolic 82–98
[2019-05-04] MEDS: LR 1,000 ML IV SCH (00:16)
[2019-05-04] MEDS: MORPHINE 4 MG/ML 1ML VIAL/SYRINGE (J2270) IV PRN ×6 (00:16→21:00)
[2019-05-04] MEDS: METOCLOPRAMIDE INJ 10MG/2ML VIAL (J2765) IV SCH ×4 (00:16→18:14)
[2019-05-04] MEDS: HumaLOG INSULIN (NovoLOG) PER UNIT SC SCH ×4 (00:17→18:14)
[2019-05-04] MEDS: SODIUM CHLORIDE 0.9% INJ 10 ML SYR IV SCH ×2 (05:52→18:13)
[2019-05-04 07:27] LABS: BLOOD UREA NITROGEN 12 MG/DL (7-18); CARBON DIOXIDE LEVEL 29 MEQ/L (21-32); CHLORIDE LEVEL 95 MEQ/L (98-107); CREATININE FOR GFR 0.53 MG/DL (0.55-1.30); GLOMERULAR FILTRATION RATE > 60.0 (>39); GLUCOSE, FASTING 170 MG/DL (70-100); POTASSIUM SERUM 3.1 MEQ/L (3.5-5.1); SODIUM LEVEL 132 MEQ/L (136-145)
[2019-05-04] MEDS: ADVAIR HFA 115/21MCG INHALER INH SCH ×2 (07:46→20:38)
[2019-05-04] MEDS: VENLAFAXINE **XR** 75MG CAPSULE PO SCH (07:47)
[2019-05-04] MEDS: ACETAMINOPHEN TAB 650MG DOSE (2X325MG) PO PRN (07:48)
[2019-05-04] MEDS: PANTOPRAZOLE 40MG INJ (PROTONIX) (C9113) IV SCH (07:48)
[2019-05-04] MEDS: ARIPiprazole 2 MG TAB PO SCH (07:49)
[2019-05-04] MEDS: ATENOLOL 25 MG TAB PO SCH (07:52)
[2019-05-04] MEDS: GABAPENTIN 100 MG CAP PO SCH ×3 (09:00→20:58)
--- NOTE | 2019-05-04 10:40 | IPNPDOC ---
Text Note Date of Service The patient was seen on 05/04/19. NOTE she is now POD2 after robotic assisted laparoscopic pyloroplasty She continues to complain of nausea, abdominal bloating. On exam, she looks uncomfortable. Patient not able to lay flat on bed due to her nausea. She has prominent distention of the upper abdomen, though abdomen itself is soft. This area is tympanitic to percussion. Nontender on palpation. Issues right now include 1. Postop nausea will check a KUB but I suspect continued gastric distention and may need an NGT placed if continues to be very nauseated 2. pain control 3. malnutrition 4. electrolyte abnormalities including hyponatremia, hypokalemia, hypochloremia will give rolanda PO lasix daily for diuresis and add some K+ in the next TPN bag. Her weight is up 4 kg from admission so most of this electrolyte abnormality will be due to dilution. Will give extra dose of K+ today. will check magnesium tomorrow am VS,Luciae, I+O VS, Fishbone, I+O Laboratory Tests 05/04/19 06:37 Calcium Level 8.0 L Vital Signs Date Time Temp Pulse Resp B/P (MAP) Pulse Ox O2 Delivery O2 Flow Rate FiO2 05/04/19 10:00 98.6 70 18 180/92 (121) 95 05/03/19 22:00 I&O- Last 24 Hours up to 6 AM 05/04/19 06:00 Intake Total 2540 ml Output Total 2440 ml Balance 100 ml DAMARIS RIGGS MD May 04, 2019 10:40
[2019-05-04] MEDS: ONDANSETRON 4MG/2ML VIAL (J2405) IV PRN (11:09)
[2019-05-04] MEDS: PROMETHAZINE 25 MG TAB PO PRN ×2 (12:27→20:58)
[2019-05-04] MEDS: FUROSEMIDE 40 MG TAB PO SCH (12:37)
--- NOTE | 2019-05-04 12:37 | REP ---
REASON FOR EXAM: Postoperative nausea. COMPARISON: 04/29/2019 The degree of contrast in the stomach and small bowel seen on the prior exam has abated. Contrast persists in the right colon increased slightly from the prior exam. There is no intestinal obstruction. There is a curvilinear radiodensity seen across the upper abdomen, the tip ends in the left upper quadrant possibly a surgical drainage tube. This needs to be correlated clinically. There are no other significant changes. Electronically Signed by Corey Sanderson DO 05/04/2019 12:49 P
[2019-05-04] MEDS: KETOROLAC 30 MG/ML VIAL (J1885) IV PRN (16:02)
[2019-05-04] MEDS ORDERED: FAT EMULSION IV 20% 500 ML IV SCH (18:00)
[2019-05-04] MEDS ORDERED: POTASSIUM CHLORIDE INJ 40 MEQ in AMINO AC/ELECTROLYTE/DEX/CALC 2,000 ML IV SCH (18:00)
[2019-05-04] MEDS: ENOXAPARIN 40 MG/0.4 ML SYRINGE (J1650) SC SCH (21:00)
[2019-05-04] MEDS: SODIUM CHLORIDE 0.9% INJ 10 ML SYR IV PRN (21:01)
[2019-05-05] VITALS (7 sets, daily range): BP systolic 155–187; BP diastolic 81–94
[2019-05-05] MEDS: HumaLOG INSULIN (NovoLOG) PER UNIT SC SCH ×4 (00:50→18:22)
[2019-05-05] MEDS: METOCLOPRAMIDE INJ 10MG/2ML VIAL (J2765) IV SCH ×4 (00:51→18:22)
[2019-05-05] MEDS: MORPHINE 4 MG/ML 1ML VIAL/SYRINGE (J2270) IV PRN ×5 (00:51→21:19)
[2019-05-05] MEDS: SODIUM CHLORIDE 0.9% INJ 10 ML SYR IV PRN ×2 (00:51→21:18)
[2019-05-05 05:41] LABS: HEMATOCRIT 33.7 % (36.0-47.0); HEMOGLOBIN 10.3 g/dl (12.0-15.5); MEAN CORPUSCULAR HEMOGLOBIN 21.1 pg (27.0-33.0); MEAN CORPUSCULAR HGB CONC 30.6 g/dl (32.0-36.5); MEAN CORPUSCULAR VOLUME 69.2 fl (80.0-96.0); PLATELET COUNT, AUTOMATED 156 10^3/uL (150-450); RED BLOOD COUNT 4.87 10^6/uL (4.00-5.40)
[2019-05-05] MEDS: SODIUM CHLORIDE 0.9% INJ 10 ML SYR IV SCH ×2 (05:55→18:24)
[2019-05-05 06:12] LABS: BLOOD UREA NITROGEN 11 MG/DL (7-18); CALCIUM LEVEL 8.4 MG/DL (8.8-10.2); CARBON DIOXIDE LEVEL 31 MEQ/L (21-32); CHLORIDE LEVEL 93 MEQ/L (98-107); CREATININE FOR GFR 0.56 MG/DL (0.55-1.30); GLOMERULAR FILTRATION RATE > 60.0 (>39); GLUCOSE, FASTING 153 MG/DL (70-100); POTASSIUM SERUM 3.2 MEQ/L (3.5-5.1); SODIUM LEVEL 131 MEQ/L (136-145)
[2019-05-05 06:44] LABS: ANISOCYTOSIS 2+; ATYPICAL LYMPH 4 % (0-5); HYPOCHROMASIA 1+; LYMPHOCYTES 18 % (16-44); MICROCYTOSIS 1+; MONOCYTES 5 % (0-5); NEUTROPHILS 73 % (28-66); PLATELET ESTIMATE NORMAL (NORMAL)
[2019-05-05 06:45] LABS: OVALOCYTES 1+
--- NOTE | 2019-05-05 08:16 | RO ---
DATE OF PROCEDURE: 05/02/2019 PREOPERATIVE DIAGNOSIS: Gastric outlet obstruction. POSTOPERATIVE DIAGNOSIS: Gastric outlet obstruction with peritoneal adhesions. PROCEDURE PERFORMED: Robotic-assisted laparoscopic pyloroplasty with lysis of adhesions. SURGEON: Dr. Pantoja ANESTHESIA: General. INDICATIONS FOR PROCEDURE: The patient is a 68-year-old woman approximately 1 month postop from a repair of a very large incarcerated hiatal hernia with creation of a Kaia fundoplication. She has had some fairly mild initially symptoms of gastric outlet obstruction but these have persisted and she has had persistent nausea with some limited emesis. She was admitted to the hospital on the . She was found to have significant retained food within the stomach. A barium swallow showed delayed emptying through a narrowed pylorus. An upper endoscopy revealed no evidence of any anatomic abnormality and it is felt that her poor gastric emptying likely relates to some vagus nerve dysfunction. She is now for a pyloroplasty to improve gastric emptying. OPERATIVE PROCEDURE: The patient was brought to the operating room and placed on the table in a supine position. She was placed under general endotracheal anesthesia. A Monteiro catheter was inserted. Teds and sequentials were utilized. The patient's abdomen was prepped and draped in sterile fashion. 0.25% Marcaine was infiltrated at the trocar sites as needed. Initially a short transverse incision was made in the right lower quadrant several centimeters below the level of the umbilicus. A Veress needle was inserted and after positive hanging drop test the abdomen was insufflated with carbon dioxide gas without difficulty. An 8 mm Visiport was placed over a 5 mm scope and advanced through the abdominal wall without difficulty. Initial examination showed few filmy adhesions in the area where the port had been placed. A second 8 mm port was placed in the medial aspect of the left lower quadrant and a third port was placed farther into the left lower quadrant. Using endoscopic cauterizing scissors with the old laparoscope, adhesions in the right lower quadrant were identified and lysed. There were some significant adhesions in this area which required a short time to take these all down and ensure hemostasis. After the adhesions were lysed. A fourth 8 mm port was placed further lateral in the right lower quadrant. The Squee patient cart was brought into position and the endoscope port was docked. Targeting took place in the additional ports were then also docked to the robotic arms. The instruments were inserted with a grasper in the lateral right lower quadrant. The cauterizing scissors in the medial left lower quadrant and a grasper in the lateral left lower quadrant. The patient was tilted to a slight reverse Trendelenburg position. I then moved to the control console to proceed with the robotic portion of the procedure. Inspection in the upper abdomen was performed. She was found to have some significant adhesions in the left upper quadrant, particularly high up by the gastric fundus and these were briefly visualized and then left undisturbed. There were a few bands of adhesions between the right lobe of the liver and diaphragm and these were also just noted. The stomach anterior wall was clearly identified. The region of the pylorus was clearly seen. The gallbladder appeared slightly thick-walled but not inflamed and was not distended. The edge of the liver and the gallbladder were then elevated using the grasping retractor. I divided some of the attachments at the superior and lateral aspect of the duodenum to allow greater mobility for the pyloroplasty. A small bleeding point was identified in the superolateral aspect of this dissection and this appeared to be controlled easily with cautery. A complete Danielle maneuver of the duodenum was not performed. A single stay suture of 2-0 silk was placed in the anterior wall of the pylorus at the superior edge of the pyloric incision. Then using the cauterizing scissors, a longitudinal incision approximately 5 cm in length was created extending from the prepyloric stomach across the pyloric muscle which appeared to be quite thickened and into the duodenal bulb. Hemostasis was ensured with the cautery. A bleeding point at the inferior midpoint of this incision was controlled by placing a corner suture of 3-0 Vicryl. I then proceeded with a transverse closure of this longitudinal incision. This was begun at the superior aspect and carried partially across the pyloroplasty using canals suture technique. A second 3-0 Vicryl suture was begun at the inferior aspect of the closure. It was noted that the patient was having some blood pooling in the subhepatic space which required attention. Further inspection identified a small arterial bleeder on what appeared to be a nubbin of pancreatic tissue protruding at the superolateral aspect of the duodenum where there had been some bleeding noted previously. I attempted to control this initially with cautery and ultimately controlled any bleeding with a dyhjur-gy-cthqu suture of 4-0 Vicryl. The blood was irrigated and removed and there was no evidence of any further bleeding. I then returned to the closure of the pyloroplasty. The closure continued using 3-0 Vicryl suture in a Jose suture. Toward the inferior aspect it was somewhat difficult to identify the edge of the mucosa on the gastric side of the closure and in order to ensure that this was adequately closed. A portion of this area was closed with interrupted simple sutures of 3-0 Vicryl. This appeared to give a nice closure. Once this complete closure of the pyloroplasty had been accomplished a second layer of sutures using interrupted simple inverting sutures of 3-0 Vicryl were placed along the entire pyloroplasty. The upper abdomen was then irrigated copiously with saline and inspected. The closure of the pyloroplasty looked excellent. There was no evidence of any leakage. There was no further bleeding identified. The robotic instruments were then removed and the robot was undocked. I elected to place in a Roberto Carlos drain across the area of the pyloroplasty and also across the area with a small bleeder in the pancreas had been sutured. Therefore using standard laparoscopic instruments a small incision was made through an old scar in the lateral right upper quadrant. A 19-Kyrgyz Roberto Carlos was inserted through one of the robotic trocars and directed out through this incision. The drain itself was placed across the subhepatic space overlying the pyloroplasty and then up beneath the edge of left lobe of the liver. A brief inspection in the pelvis showed a small amount of blood, presumably from the adhesiolysis and this was suctioned and there was no evidence any ongoing bleeding. The patient was returned to a flat position. The abdomen was deflated and the trocars were all removed. Additional local anesthesia was infiltrated about the drain site and around each of the trocar sites. The trocar sites were closed with buried 4-0 Vicryl and Steri-Strips. The drain was sutured to the skin with 2-0 silk and connected to a Brannon-Huynh a chlorhexidine gluconate OpSite was placed over the drain site and 2 x 2's were placed on the trocar sites. The patient tolerated the procedure well without apparent complication. An orogastric tube placed by anesthesia was removed and her Monteiro catheter was also removed. She was awakened in the operating room, extubated and moved to the recovery room in stable condition. MARIANELA
[2019-05-05] MEDS: GABAPENTIN 100 MG CAP PO SCH ×3 (09:00→21:00)
[2019-05-05] MEDS: POTASSIUM CHLORIDE 10 MEQ SR TABLET PO SCH (09:38)
[2019-05-05] MEDS: VENLAFAXINE **XR** 75MG CAPSULE PO SCH (09:38)
[2019-05-05] MEDS: FUROSEMIDE 40 MG TAB PO SCH (09:39)
[2019-05-05] MEDS: PROMETHAZINE 25 MG TAB PO PRN ×3 (09:39→21:19)
[2019-05-05] MEDS: ARIPiprazole 2 MG TAB PO SCH (09:39)
[2019-05-05] MEDS: ATENOLOL 25 MG TAB PO SCH (09:39)
[2019-05-05] MEDS: PANTOPRAZOLE 40MG INJ (PROTONIX) (C9113) IV SCH (09:40)
[2019-05-05] MEDS ORDERED: KCL 10MEQ/100ML SWI (KRUN) 10 MEQ in IV 1 EA IV ONE (10:00)
[2019-05-05] MEDS: ADVAIR HFA 115/21MCG INHALER INH SCH ×2 (10:00→20:00)
[2019-05-05] MEDS: ONDANSETRON 4MG/2ML VIAL (J2405) IV PRN (14:57)
--- NOTE | 2019-05-05 15:11 | IPNPDOC ---
Text Note Date of Service The patient was seen on 05/05/19. NOTE POD3 RA Lap pyloroplasty for gastroparesis following paraesophageal hernia r elaine She tells me she did not have a good night due to nausea. She gets regular doses of reglan and intermittent doses of phenergan which makes her comfortable but does not fully resolve the nausea. She is feeling mildly better at the time that I saw her as she just had a dose of her meds in the past hour. She burps some. She seems to be mainly bedridden because of the nausea. I have not seen her ambulate outside the room. Afebrile. On exam: She looks mildly more comfortable this morning. She is able to lay on bed comfortably with the head elevated today. She could not do that yesterday. Her abdomen still looks distended and prominent on the upper abdomen. No real point tenderness. Her incisions are covered with clean, dry gauze. Her AALIYAH drainage is mostly serous now Impression/Plan I still think she may benefit from placement of NG tube to decompress the stomach while waiting for the pyloroplasty swelling to come down a bit and allow for better drainage. She's not ready yet to tolerate any significant oral feeding so will continue her TPN. I will add some NaCl to the regular mix for the hyponatremia and hypocholoremia. I still think there is an element of dilution with it. Her weight is about 2 kgs above preoperative level, so I will continue the lasix. I will give her an extra KCl run. She is getting extra KCl through the current TPN. I will get another xray today to get a sense of how distended the stomach is. VS,Fishbone, I+O VS, Fishbone, I+O Laboratory Tests 05/05/19 05:18 Red Blood Count 4.87, Mean Corpuscular Volume 69.2 L, Mean Corpuscular Hemoglobin 21.1 L, Mean Corpuscular Hemoglobin Concent 30.6 L, Red Cell Distribution Width 20.4 H, Calcium Level 8.4 L Vital Signs Date Time Temp Pulse Resp B/P (MAP) Pulse Ox O2 Delivery O2 Flow Rate FiO2 05/05/19 09:41 98.2 73 168/90 (116) 96 05/05/19 06:05 16 05/03/19 22:00 I&O- Last 24 Hours up to 6 AM 05/05/19 06:00 Intake Total 1565 ml Output Total 3785 ml Balance -2220 ml DAMARIS RIGGS MD May 05, 2019 15:11
--- NOTE | 2019-05-05 16:59 | REP ---
KUB: Single view: History: Follow-up gastric distension. Comparison study: May 04, 2019. Findings: Moderate gaseous distension of the stomach persists essentially unchanged. There is high-density barium in the right colon again noted. No large or small bowel dilation is observed. Impression: Gaseous distension of the stomach persists. Electronically Signed by Ranjan Mccain MD 05/05/2019 06:40 P
[2019-05-05] MEDS ORDERED: FAT EMULSION IV 20% 500 ML IV SCH (18:00)
[2019-05-05] MEDS ORDERED: [UNRECOGNIZED DRUG - MIXTURE] IV SCH ×4 (18:00)
[2019-05-05] MEDS: ENOXAPARIN 40 MG/0.4 ML SYRINGE (J1650) SC SCH (21:18)
[2019-05-06] MEDS: MORPHINE 4 MG/ML 1ML VIAL/SYRINGE (J2270) IV PRN ×2 (00:43→06:52)
[2019-05-06] MEDS: HumaLOG INSULIN (NovoLOG) PER UNIT SC SCH ×4 (00:44→18:20)
[2019-05-06] MEDS: METOCLOPRAMIDE INJ 10MG/2ML VIAL (J2765) IV SCH ×4 (00:44→18:20)
[2019-05-06] MEDS: SODIUM CHLORIDE 0.9% INJ 10 ML SYR IV PRN ×3 (00:45→12:00)
[2019-05-06 02:15] VITALS: BP 156/91
[2019-05-06 06:02] VITALS: BP 141/71
[2019-05-06] MEDS: SODIUM CHLORIDE 0.9% INJ 10 ML SYR IV SCH ×2 (06:51→18:20)
[2019-05-06] MEDS: ADVAIR HFA 115/21MCG INHALER INH SCH ×3 (07:45→17:56)
[2019-05-06 08:01] LABS: BLOOD UREA NITROGEN 15 MG/DL (7-18); CALCIUM LEVEL 8.6 MG/DL (8.8-10.2); CARBON DIOXIDE LEVEL 32 MEQ/L (21-32); CHLORIDE LEVEL 96 MEQ/L (98-107); CREATININE FOR GFR 0.58 MG/DL (0.55-1.30); GLOMERULAR FILTRATION RATE > 60.0 (>39); GLUCOSE, FASTING 149 MG/DL (70-100); POTASSIUM SERUM 3.4 MEQ/L (3.5-5.1); SODIUM LEVEL 134 MEQ/L (136-145)
[2019-05-06] MEDS: ARIPiprazole 2 MG TAB PO SCH (09:00)
[2019-05-06] MEDS: VENLAFAXINE **XR** 75MG CAPSULE PO SCH (09:00)
[2019-05-06] MEDS: FUROSEMIDE 40 MG TAB PO SCH (09:00)
[2019-05-06] MEDS: POTASSIUM CHLORIDE 10 MEQ SR TABLET PO SCH (09:00)
[2019-05-06] MEDS: GABAPENTIN 100 MG CAP PO SCH ×3 (09:00→15:48)
[2019-05-06] MEDS: ATENOLOL 25 MG TAB PO SCH (09:19)
[2019-05-06] MEDS: PANTOPRAZOLE 40MG INJ (PROTONIX) (C9113) IV SCH (09:19)
[2019-05-06 13:08] VITALS: BP 142/71
[2019-05-06] MEDS: KETOROLAC 30 MG/ML VIAL (J1885) IV PRN ×2 (15:44→22:15)
[2019-05-06] MEDS ORDERED: FAT EMULSION IV 20% 500 ML IV SCH (18:00)
[2019-05-06] MEDS ORDERED: AMINO AC/ELECTROLYTE/DEX/CALC 2,000 ML IV SCH (18:00)
[2019-05-06 20:40] VITALS: BP 158/78
[2019-05-06] MEDS: ENOXAPARIN 40 MG/0.4 ML SYRINGE (J1650) SC SCH (21:58)
[2019-05-06] MEDS: ONDANSETRON 4MG/2ML VIAL (J2405) IV PRN (22:12)
[2019-05-07] VITALS (7 sets, daily range): BP systolic 152–177; BP diastolic 70–89
[2019-05-07] MEDS: METOCLOPRAMIDE INJ 10MG/2ML VIAL (J2765) IV SCH ×4 (00:31→16:46)
[2019-05-07] MEDS: SODIUM CHLORIDE 0.9% INJ 10 ML SYR IV PRN ×4 (00:33→18:05)
[2019-05-07] MEDS: HumaLOG INSULIN (NovoLOG) PER UNIT SC SCH ×4 (00:34→18:04)
[2019-05-07] MEDS: SODIUM CHLORIDE 0.9% INJ 10 ML SYR IV SCH ×2 (06:18→16:46)
[2019-05-07] MEDS: KETOROLAC 30 MG/ML VIAL (J1885) IV PRN (06:27)
[2019-05-07] MEDS: ADVAIR HFA 115/21MCG INHALER INH SCH ×2 (07:32→20:25)
[2019-05-07] MEDS: PANTOPRAZOLE 40MG INJ (PROTONIX) (C9113) IV SCH (08:49)
[2019-05-07] MEDS: VENLAFAXINE **XR** 75MG CAPSULE PO SCH (08:49)
[2019-05-07] MEDS: ARIPiprazole 2 MG TAB PO SCH (08:49)
[2019-05-07] MEDS: ATENOLOL 25 MG TAB PO SCH (08:49)
[2019-05-07] MEDS: MORPHINE 4 MG/ML 1ML VIAL/SYRINGE (J2270) IV PRN ×2 (08:58→18:04)
[2019-05-07] MEDS ORDERED: GASTROGRAFIN SOLUTION 30ML (Q9963) As Ordered ONE ×2 (10:04→10:12)
[2019-05-07] MEDS: ONDANSETRON 4MG/2ML VIAL (J2405) IV PRN (10:48)
--- NOTE | 2019-05-07 13:51 | REP ---
Examination Requested: Upper G.I. Series With KUB Reason For Exam: Evaluate gastric emptying, status post gastric surgery Upper GI Air Contrast The procedure was performed by MELODY Longoria, under the direct supervision of Dr. Mccain. The images were reviewed with Dr. Mccain. The physician relations manager film shows the stomach is distended with air. The intestinal gas pattern appears normal. Gastrografin was given in the prone oblique position in order to perform the examination. The oral and pharyngeal stages of deglutition were unremarkable. Esophageal transport is efficient and there is no esophagitis, stricture, or mucosal ring noted. However after having a couple of swallows of the gastrografin, the patient vomited and did not want to continue the study. The stomach wei are normally outlined. The rugal folds are smooth and regular. There is no gastritis, neoplasm, ulcer disease noted. Impression: 1. Air distended stomach. 2. An upper GI with gastrografin was attempted but the patient was unable to hold down any of the contrast down, and the exam was aborted. 0.3 minutes of fluoroscopy time was utilized for this procedure. Some fluoroscopic images are performed with last image hold technology. These images require no additional radiation. Reviewed by MELODY Souza 05/07/2019 12:51 P Electronically Signed by Ranjan Mccain MD 05/07/2019 01:41 P
--- NOTE | 2019-05-07 15:06 | REP ---
REASON FOR EXAM: Followup. COMPARISON: Multiple, the latest 04/25/2019. The amount of barium seen in the right colon is essentially unchanged, however, there is now evidence of mild opacification of some of the distal small bowel loops. There is no evidence of intestinal obstruction. Gaseous distention of the stomach persists. There is no evidence of free intraperitoneal air. The curvilinear density consistent with a drainage tube is unchanged. IMPRESSION: 1. There now appears to be some of the retained barium and colon refluxing into the small bowel. 2. Other findings as described above. Electronically Signed by Corey Sanderson DO 05/07/2019 03:51 P
[2019-05-07] MEDS ORDERED: [UNRECOGNIZED DRUG - MIXTURE] IV SCH ×4 (18:00)
[2019-05-07] MEDS ORDERED: FAT EMULSION IV 20% 500 ML IV SCH (18:00)
[2019-05-07] MEDS: ENOXAPARIN 40 MG/0.4 ML SYRINGE (J1650) SC SCH (21:12)
[2019-05-08] MEDS: METOCLOPRAMIDE INJ 10MG/2ML VIAL (J2765) IV SCH ×3 (00:36→11:54)
[2019-05-08] MEDS: HumaLOG INSULIN (NovoLOG) PER UNIT SC SCH ×4 (00:36→17:57)
[2019-05-08 02:15] VITALS: BP 173/89
[2019-05-08] MEDS: SODIUM CHLORIDE 0.9% INJ 10 ML SYR IV SCH ×2 (05:10→17:56)
[2019-05-08 05:15] VITALS: BP 190/97
[2019-05-08 06:26] LABS: BASO % 0.5 % (0.0-1.0); EOS % 0.2 % (0.0-3.0); HEMATOCRIT 32.2 % (36.0-47.0); HEMOGLOBIN 9.7 g/dl (12.0-15.5); LYMPH # 0.8 10^3/uL (1.5-5.0); LYMPH % 14.5 % (24.0-44.0); MEAN CORPUSCULAR HEMOGLOBIN 21.2 pg (27.0-33.0); MEAN CORPUSCULAR HGB CONC 30.1 g/dl (32.0-36.5); MEAN CORPUSCULAR VOLUME 70.5 fl (80.0-96.0); MONO # 0.6 10^3/uL (0.0-0.8); MONO % 11.4 % (0.0-5.0); NEUTROPHILS % 72.5 % (36.0-66.0); PLATELET COUNT, AUTOMATED 162 10^3/uL (150-450); RED BLOOD COUNT 4.57 10^6/uL (4.00-5.40); WHITE BLOOD COUNT 5.5 10^3/uL (4.0-10.0)
[2019-05-08 06:48] LABS: ALBUMIN 2.6 GM/DL (3.2-5.2); ALT/SGPT 34 U/L (12-78); BILIRUBIN,TOTAL 0.4 MG/DL (0.2-1.0); BLOOD UREA NITROGEN 16 MG/DL (7-18); CALCIUM LEVEL 8.7 MG/DL (8.8-10.2); CARBON DIOXIDE LEVEL 30 MEQ/L (21-32); CHLORIDE LEVEL 101 MEQ/L (98-107); CREATININE FOR GFR 0.59 MG/DL (0.55-1.30); GLOMERULAR FILTRATION RATE > 60.0 (>39); GLUCOSE, FASTING 134 MG/DL (70-100); POTASSIUM SERUM 3.6 MEQ/L (3.5-5.1); SODIUM LEVEL 137 MEQ/L (136-145); TOTAL PROTEIN 6.3 GM/DL (6.4-8.2)
[2019-05-08] MEDS: ADVAIR HFA 115/21MCG INHALER INH SCH ×2 (07:41→20:08)
[2019-05-08] MEDS: ONDANSETRON 4MG/2ML VIAL (J2405) IV PRN (08:36)
[2019-05-08] MEDS: PANTOPRAZOLE 40MG INJ (PROTONIX) (C9113) IV SCH (08:36)
[2019-05-08] MEDS: ARIPiprazole 2 MG TAB PO SCH (08:36)
[2019-05-08] MEDS: VENLAFAXINE **XR** 75MG CAPSULE PO SCH (08:36)
[2019-05-08] MEDS: ATENOLOL 25 MG TAB PO SCH (08:37)
[2019-05-08] MEDS: MORPHINE 4 MG/ML 1ML VIAL/SYRINGE (J2270) IV PRN ×2 (08:37→11:54)
--- NOTE | 2019-05-08 08:47 | IPN ---
DATE: 05/07/2019 HISTORY: The patient is now postop day #5 from a robotic-assisted laparoscopic pyloroplasty for gastric outlet obstruction following a repair of a hiatal hernia with Kaia fundoplication about a month ago. Yesterday the patient reported that she had the first day without any significant nausea in quite some time. This morning she is complaining again of some nausea though not as bad as it has been. She has had no vomiting. Vital signs: Show that she has been afebrile over the past 24 hours. Her pulse is in the 70s and 80s and her blood pressure is acceptable. Intake and output show that yesterday she had 1240 recorded in with 2000 recorded out, although her in the total parenteral nutrition intake should have been much higher than what was recorded. PHYSICAL EXAMINATION: The patient is lying quietly in the hospital bed. She is alert and oriented. Heart exam shows a regular rate and rhythm. The lungs are clear. The abdomen is obese but soft. She has bowel sounds present. There is no significant tenderness. Her drain has a minimal amount of serous fluid in the collection bottle. IMPRESSION: Patient is now 5 days postop from her pyloroplasty. She is clearly tolerating her own secretions. She felt better yesterday than today with some recurrence of her nausea today. She is to have her barium swallow today to see if her stomach empties better. PLAN: The patient's drain will be removed today as she had only 55 mL out yesterday. She will be allowed to take some full liquids as tolerated and I encouraged her to be up out of bed. I will see how her swallowing study looks. MARIANELA
--- NOTE | 2019-05-08 08:52 | IPN ---
DATE: 05/06/2019 HISTORY: The patient is 4 days postop from her robotic-assisted laparoscopic pyloroplasty for gastric outlet obstruction following her recent repair of a hiatal hernia with a Kaia fundoplication. The patient reports that for the first time in quite some time she awakened without any nausea this morning. She has had no vomiting. She reports that she has been up to ambulate in the hallway once and is feeling somewhat better. Vital signs: Show that she has been afebrile over the past 24 hours. Her pulse has been in the 70s. Her blood pressure has generally been in the 150s and 140s systolically. Intake and output show that yesterday she had 1140 recorded in with 3000 recorded out. Unfortunately her total parenteral nutrition should account for at least twice this much in IV intake. Her weight has remained relatively stable. PHYSICAL EXAMINATION: The patient is alert and appears comfortable. She appears somewhat more comfortable than she has the last few days. Her abdomen is mildly full but soft and without any significant tenderness. Laboratory studies included a sodium of 134, potassium 3.4, chloride 96, CO2 of 32, BUN of 15, creatinine 0.6 and a glucose of 149. IMPRESSION: The patient seems to be feeling better today and this is very reassuring. PLAN: I will schedule the patient for a barium swallow tomorrow to assess her gastric outlet and ensure that she is draining well. Her son has left a message with the nurses that he would like to talk to me and I will call him to fill him in on her current status. We will continue her total parenteral nutrition (TPN) for now. MARIANELA
[2019-05-08 10:00] VITALS: BP 160/85
[2019-05-08 14:30] VITALS: BP 160/85
[2019-05-08] MEDS ORDERED: zolPIDEM TARTRATE 5 MG TAB PO PRN (16:45)
--- NOTE | 2019-05-08 17:33 | IPN ---
DATE: 05/08/2019 HISTORY: Patient is now six days postoperative from her pyloroplasty. She took some liquids yesterday fairly well but this morning has complained again about nausea. She has not had any emesis at this time. She has her and son and two other family members in the room with her when I came to visit today. She has used a couple doses of morphine today, which is recorded in the record as for pain, although she reports that this has been taken mostly because it lets her sleep for a short time and I advised her that I think we need to stop taking the morphine except for severe pain and that she has not been having. Vital signs reveal that she has been afebrile over the past 24 hours. Her pulses in the 70s and 80s. Her blood pressure is up again today. Most recent record of her blood pressure was 190/97, but that was early this morning. Her room air oxygen saturation is fine. Intake and output show that yesterday she had 600 recorded in orally and nothing is written down for her total parenteral nutrition, though I have it on good authority, having seen it hanging there myself several times, that she is actually on total parenteral nutrition at a rate that should give her 1700 mL of fluid daily. Patient reports a very small bowel movement today, but feels like some sort of bowel care would be appropriate. PHYSICAL EXAMINATION: Patient is sitting propped up in the bed. She appears fairly comfortable. She is breathing easily. Heart shows a regular rhythm on her monitor and the abdomen is nondistended. Laboratory studies today showed a white count of 6, hemoglobin 10, hematocrit 32 and platelet count of 162,000. Differential count showed 72% neutrophils, 14% lymphocytes and 11% monocytes. Her chemistry profile showed normal electrolytes, BUN and creatinine and a glucose of 134. Her liver function tests are normal, with a total protein of 6.3 and an albumin of 2.6. Her kidneys, ureter, bladder (KUB) yesterday showed contrast from her prior upper gastrointestinal (GI) series of 04/28/2019 was still sitting in the proximal right colon. The small amount of oral contrast she took yesterday had progressed into her small bowel, appearing to be fairly distal. Clearly, this is consistent with better emptying of her stomach. IMPRESSION: Patient has still some on and off nausea. The contrast study would suggest that her stomach is emptying much better. PLAN: I am going to stop her morphine. I will provide her a small dose of Ambien at bedtime for insomnia, if requested. I have encouraged her to be up out of bed. I will let her take a shower since her drain is now out. I will continue the total parenteral nutrition (TPN) at its current rate of 50 mL per hour until she seems to be taking liquids better. MTDD
[2019-05-08] MEDS: METOCLOPRAMIDE 5 MG TAB PO SCH ×2 (17:55→20:59)
[2019-05-08] MEDS: NORCO, ANEXSIA 5/325MG TABLET (HYDROcodone/ACETAMINOPHEN) PO PRN (17:56)
[2019-05-08] MEDS ORDERED: FAT EMULSION IV 20% 500 ML IV SCH (18:00)
[2019-05-08] MEDS ORDERED: AMINO AC/ELECTROLYTE/DEX/CALC 2,000 ML IV SCH (18:00)
[2019-05-08 18:14] VITALS: BP 161/85
[2019-05-08] MEDS: ENOXAPARIN 40 MG/0.4 ML SYRINGE (J1650) SC SCH (20:59)
[2019-05-08 22:00] VITALS: BP 163/76
[2019-05-09] VITALS (7 sets, daily range): BP systolic 152–165; BP diastolic 78–88
[2019-05-09] MEDS: HumaLOG INSULIN (NovoLOG) PER UNIT SC SCH ×5 (00:12→23:53)
[2019-05-09] MEDS: NORCO, ANEXSIA 5/325MG TABLET (HYDROcodone/ACETAMINOPHEN) PO PRN ×3 (03:43→16:59)
[2019-05-09] MEDS: SODIUM CHLORIDE 0.9% INJ 10 ML SYR IV SCH ×2 (06:19→17:00)
[2019-05-09] MEDS: ADVAIR HFA 115/21MCG INHALER INH SCH ×2 (07:53→20:11)
[2019-05-09] MEDS: VENLAFAXINE **XR** 75MG CAPSULE PO SCH (08:33)
[2019-05-09] MEDS: METOCLOPRAMIDE 5 MG TAB PO SCH ×4 (08:33→21:52)
[2019-05-09] MEDS: ARIPiprazole 2 MG TAB PO SCH (08:33)
[2019-05-09] MEDS: PANTOPRAZOLE 40MG INJ (PROTONIX) (C9113) IV SCH (08:34)
[2019-05-09] MEDS: ATENOLOL 25 MG TAB PO SCH (08:34)
[2019-05-09] MEDS: DOCUSATE SODIUM 100 MG CAP PO SCH ×2 (11:35→21:52)
[2019-05-09] MEDS: ENOXAPARIN 40 MG/0.4 ML SYRINGE (J1650) SC SCH (21:52)
[2019-05-10 02:15] VITALS: BP 152/87
[2019-05-10] MEDS: PROMETHAZINE 25 MG TAB PO PRN (04:59)
[2019-05-10] MEDS: FLUTICASONE PROP 0.05% NASAL SPRAY 16 GM (FLONASE) NARES PRN (06:21)
[2019-05-10] MEDS: SODIUM CHLORIDE 0.9% INJ 10 ML SYR IV SCH ×2 (06:22→17:49)
[2019-05-10] MEDS: HumaLOG INSULIN (NovoLOG) PER UNIT SC SCH (06:22)
[2019-05-10 06:46] VITALS: BP 159/79
[2019-05-10] MEDS: ADVAIR HFA 115/21MCG INHALER INH SCH ×2 (07:35→21:05)
[2019-05-10] MEDS: ARIPiprazole 2 MG TAB PO SCH (08:28)
[2019-05-10] MEDS: PANTOPRAZOLE 40MG INJ (PROTONIX) (C9113) IV SCH (08:28)
[2019-05-10] MEDS: DOCUSATE SODIUM 100 MG CAP PO SCH ×2 (08:28→21:00)
[2019-05-10] MEDS: VENLAFAXINE **XR** 75MG CAPSULE PO SCH (08:28)
[2019-05-10] MEDS: METOCLOPRAMIDE 5 MG TAB PO SCH ×4 (08:28→21:01)
[2019-05-10] MEDS: ATENOLOL 25 MG TAB PO SCH (08:29)
[2019-05-10 10:00] VITALS: BP 155/66
--- NOTE | 2019-05-10 12:29 | IPN ---
DATE OF SERVICE: 05/10/2019 HISTORY: The patient is now 8 days postoperative from a robotic-assisted laparoscopic pyloroplasty for gastric outlet obstruction symptoms following a reduction of a large hiatal hernia with a Kaia fundoplication. She did fairly well yesterday with a diet and said that she felt pretty good. I did not have an opportunity to see the patient yesterday because of prolonged cases in the operating room. I did talk with the nurse who indicated the patient was doing well and we stopped her total parenteral nutrition (TPN) after it completed yesterday's bag in the evening. Vital signs show that the patient has been afebrile. Her pulse is in the 70s to 80 and her blood pressure is in the 150s systolic. Room air oxygen saturations are normal. Intake and output show that yesterday she had 1620 in orally and her IV intake was not accurately recorded. Her urine output was recorded as 1925. She had a couple of small bowel movements and voided multiple times. PHYSICAL EXAMINATION: The patient is lying quietly in the bed. She appears mildly uncomfortable and reports that she has had some nausea again today, though she felt pretty good yesterday. Heart exam shows a regular rate and rhythm. The lungs are clear. The abdomen is mildly full as it has always been and she has active bowel sounds. The patient has no new labs today except for her fingerstick blood sugar which was 119 this morning. IMPRESSION: The patient has had a couple of good days, but today is feeling somewhat nauseous again. Her oral intake yesterday was pretty good and she reports having had some tomato soup with crackers that went well. PLAN: I am going to leave her off of the total parenteral nutrition. I am going to advance her to a soft diet. I encouraged her to pick and choose amongst whatever foods seem to taste good or spark her interest. I encouraged her to be up out of bed. I will stop her fingersticks and sliding scale insulin coverage as with her off the TPN I doubt she will require these. I will check a CPA tomorrow morning. MARIANELA
[2019-05-10 14:00] VITALS: BP 153/68
[2019-05-10] MEDS: NORCO, ANEXSIA 5/325MG TABLET (HYDROcodone/ACETAMINOPHEN) PO PRN ×2 (14:45→21:02)
[2019-05-10 18:00] VITALS: BP 157/83
[2019-05-10] MEDS: ACETAMINOPHEN TAB 650MG DOSE (2X325MG) PO PRN (18:33)
[2019-05-10] MEDS: ENOXAPARIN 40 MG/0.4 ML SYRINGE (J1650) SC SCH (21:02)
[2019-05-10 22:00] VITALS: BP 149/77
[2019-05-11 02:18] VITALS: BP 122/66
[2019-05-11] MEDS: SODIUM CHLORIDE 0.9% INJ 10 ML SYR IV SCH ×2 (05:25→17:47)
[2019-05-11 05:49] VITALS: BP_SYST 139; BP_SYST 97; BP_DIAS 50; BP_DIAS 78
[2019-05-11 07:17] LABS: ALBUMIN 2.8 GM/DL (3.2-5.2); ALT/SGPT 28 U/L (12-78); BILIRUBIN,TOTAL 0.7 MG/DL (0.2-1.0); BLOOD UREA NITROGEN 12 MG/DL (7-18); CALCIUM LEVEL 9.1 MG/DL (8.8-10.2); CARBON DIOXIDE LEVEL 26 MEQ/L (21-32); CHLORIDE LEVEL 99 MEQ/L (98-107); CREATININE FOR GFR 0.51 MG/DL (0.55-1.30); GLOMERULAR FILTRATION RATE > 60.0 (>39); GLUCOSE, FASTING 112 MG/DL (70-100); POTASSIUM SERUM 3.4 MEQ/L (3.5-5.1); SODIUM LEVEL 135 MEQ/L (136-145); TOTAL PROTEIN 6.7 GM/DL (6.4-8.2)
[2019-05-11] MEDS: ADVAIR HFA 115/21MCG INHALER INH SCH ×2 (07:20→20:37)
[2019-05-11] MEDS: METOCLOPRAMIDE 5 MG TAB PO SCH ×4 (08:14→21:08)
[2019-05-11] MEDS: VENLAFAXINE **XR** 75MG CAPSULE PO SCH (08:14)
[2019-05-11] MEDS: PANTOPRAZOLE 40MG TAB (PROTONIX) PO SCH (08:14)
[2019-05-11] MEDS: DOCUSATE SODIUM 100 MG CAP PO SCH ×3 (08:14→21:00)
[2019-05-11] MEDS: ARIPiprazole 2 MG TAB PO SCH (08:14)
[2019-05-11] MEDS: ATENOLOL 25 MG TAB PO SCH (08:15)
[2019-05-11 10:00] VITALS: BP 125/70
[2019-05-11 14:00] VITALS: BP 125/71
[2019-05-11] MEDS: NORCO, ANEXSIA 5/325MG TABLET (HYDROcodone/ACETAMINOPHEN) PO PRN ×2 (15:25→21:09)
[2019-05-11] MEDS: PROMETHAZINE 25 MG TAB PO PRN (15:25)
[2019-05-11] MEDS: ENOXAPARIN 40 MG/0.4 ML SYRINGE (J1650) SC SCH (21:08)
[2019-05-11 22:00] VITALS: BP 111/66
[2019-05-12 02:00] VITALS: BP 115/64
[2019-05-12] MEDS: SODIUM CHLORIDE 0.9% INJ 10 ML SYR IV SCH (05:40)
[2019-05-12 06:00] VITALS: BP 129/76
--- NOTE | 2019-05-12 06:43 | IPN ---
DATE: 05/11/2019 HISTORY: The patient is now postop day 9 from a robotic-assisted laparoscopic pyloroplasty for gastric outlet problems following a repair of her hiatal hernia with a Kaia fundoplication. Today when I went in to see her she was looking almost happy and was eating solid food and reporting that she felt great and had had another day of no apparent significant nausea. Vital signs show that she has been afebrile. Her pulse is in the 70s and low 80s and blood pressure is excellent today. Intake and output show that yesterday she had 1750 in with 800 recorded out. PHYSICAL EXAMINATION: The patient is sitting in the bed eating macaroni salad. She is alert and appears comfortable. The abdomen is soft and nondistended with bowel sounds present. She had a complete profile this morning that shows a sodium of 135, potassium 3.4, chloride 99, CO2 of 26, BUN of 12, creatinine 0.5 and glucose of 112. Her liver function tests are absolutely normal. Total protein is 6.7 with an albumin of 2.8. IMPRESSION: The patient is beginning to be more comfortable with less nausea and is tolerating a diet well. PLAN: The patient will be monitored for another day or two in the hospital until it is clear that she is taking adequate caloric intake and doing well without the need for additional pain medication and she can then be discharged. MARIANELA
[2019-05-12] MEDS: ADVAIR HFA 115/21MCG INHALER INH SCH ×2 (07:18→20:04)
[2019-05-12] MEDS: METOCLOPRAMIDE 5 MG TAB PO SCH ×4 (08:07→20:30)
[2019-05-12] MEDS: DOCUSATE SODIUM 100 MG CAP PO SCH ×2 (08:07→08:09)
[2019-05-12] MEDS: VENLAFAXINE **XR** 75MG CAPSULE PO SCH (08:08)
[2019-05-12] MEDS: PANTOPRAZOLE 40MG TAB (PROTONIX) PO SCH (08:08)
[2019-05-12] MEDS: ARIPiprazole 2 MG TAB PO SCH (08:08)
[2019-05-12] MEDS: ATENOLOL 25 MG TAB PO SCH (08:08)
[2019-05-12] MEDS: NORCO, ANEXSIA 5/325MG TABLET (HYDROcodone/ACETAMINOPHEN) PO PRN (08:09)
[2019-05-12] MEDS ORDERED: PROM25TA12 PO (09:16)
[2019-05-12] MEDS ORDERED: METO5TAB2 PO (09:16)
[2019-05-12 14:00] VITALS: BP 129/76
[2019-05-12 19:26] VITALS: BP 132/72
[2019-05-12] MEDS: ENOXAPARIN 40 MG/0.4 ML SYRINGE (J1650) SC SCH (20:30)
[2019-05-12] MEDS: ACETAMINOPHEN TAB 650MG DOSE (2X325MG) PO PRN (20:31)
[2019-05-13 05:47] VITALS: BP 150/80
[2019-05-13] MEDS: VENLAFAXINE **XR** 75MG CAPSULE PO SCH (08:02)
[2019-05-13] MEDS: ARIPiprazole 2 MG TAB PO SCH (08:02)
[2019-05-13] MEDS: METOCLOPRAMIDE 5 MG TAB PO SCH (08:02)
[2019-05-13 08:03] VITALS: BP 150/80
[2019-05-13] MEDS: ATENOLOL 25 MG TAB PO SCH (08:03)
[2019-05-13] MEDS: PANTOPRAZOLE 40MG TAB (PROTONIX) PO SCH (08:03)
[2019-05-13] MEDS: ACETAMINOPHEN TAB 650MG DOSE (2X325MG) PO PRN (08:28)
[2019-05-13] MEDS: ADVAIR HFA 115/21MCG INHALER INH SCH (08:31)
--- NOTE | 2019-05-13 16:59 | REP ---
Procedure: PICC line insertion with Jade The procedure was performed under the direct supervision of Dr. Dick. The risks and benefits of the procedure were explained to the patient and informed consent was obtained. The left brachial vein was localized using ultrasound guidance. The skin was prepped and draped in a sterile fashion. 2% lidocaine was used as a local anesthetic. Using ultrasound guidance the brachial vein was cannulated and a 0.018 guidewire was inserted and advanced to the SVC using fluoroscopic guidance. The needle was removed and a 5.5 Bulgarian dilator and peel-away sheath was inserted over the guide wire. A 5.5 Bulgarian dual lumen catheter was cut to length of 43 cm. The dilator was removed and the catheter was inserted over the guide wire with the tip ending in the SVC. The peel-away sheath was removed and the catheter was flushed with heparinized saline as per Hospital protocol. The catheter was affixed to the skin and a sterile dressing was applied. The patient tolerated the procedure well and there were no immediate complications. 0.3 minutes of fluoro time was utilized for this procedure. Electronically Signed by MELODY Smith 05/07/2019 11:23 A Electronically Signed by Fan Dick MD 05/13/2019 04:50 P
--- NOTE | 2019-06-11 15:13 | DSES ---
DATE OF ADMISSION: 04/26/2019 DATE OF DISCHARGE: 05/13/2019 ADMITTING DIAGNOSIS: Nausea and vomiting. HISTORY OF PRESENT ILLNESS: The patient is a 68-year-old woman who is approximately 3 weeks and 5 days postop from a robotic-assisted laparoscopic reduction and repair of an incarcerated hiatal hernia. A Kaia fundoplication was performed. Postoperatively, she had no troubles with dysphasia. She did have some gastric distension which develop about the second or third postop day. This was transiently addressed with a nasogastric tube. This was subsequently removed and she was slowly advanced back to a regular diet. She was discharged from the hospital on April 09, 2019. She reports that she has been able to belch suggesting that her Kaia fundoplication was not too tight. She reports however that she has been having some persistent sensations of fullness and nausea. She has had some minimal vomiting at times. She has not had any fevers or chills and denies any significant abdominal pain. She had presented to the emergency department on April. She has been taking some Zofran without significant relief in her symptoms. In the emergency department on the , laboratory studies showed a white count of 6000 with a hemoglobin of 12, hematocrit of 41 and a normal platelet count. She had chemistries that were without significant abnormality. An abdominal x-ray at that time revealed clearing of a postoperative small pleural effusion and a suggestion of some material within the stomach but without any obvious significant gastric distension. She was provided a prescription for Phenergan to take as needed and was advised to remain only on clear liquids. 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 She had been unable to take any significant quantity of fluid. A CT scan revealed that her stomach did not appear significantly distended, though she did seem to have a significant amount of possible food debris within the stomach. There was no evidence of intestinal obstruction. The picture was felt to be consistent with possible gastric outlet obstruction and she was admitted to undergo further evaluation and treatment. HOSPITAL COURSE: The patient was kept nothing by mouth. We discussed the possibility of a nasogastric tube but elected not to place this. She was continued on IV fluid at a maintenance rate and was continued on intravenous Protonix and anti-nausea medication. The following day, a KUB suggested a normal bowel gas pattern and possible decrease in the amount of material within the stomach. She did continue to complain of some nausea. She was started back on some of her usual medications. She was scheduled for an upper GI series, which was performed on the morning of the . The images revealed an intact repair of her hiatal hernia. She still had some food debris within the stomach, which precluded complete examination of the gastric lining. The pyloric channel appeared somewhat narrowed but there was flow of contrast slowly into the duodenum and the duodenum itself looked normal other than a duodenal diverticulum in the second portion. She was allowed to take a few ice chips and sips of liquid, but said that she really, with the persistent nausea, did not feel like taking anything. She otherwise remained hemodynamically stable. A abdominal x-ray on the showed that there was a small amount of residual contrast within the stomach though much of the contrast has passed to the distal small bowel and even into the right colon. She was noted to be on some routine Protonix, Reglan and as needed Zofran. Physical therapy was ordered and she was scheduled for an upper endoscopy. The upper endoscopy was performed on April. This revealed normal esophagus. There was some mild erythematous mucosa at the gastroesophageal (GE) junction. She still had some retained food residue within the gastric fundus. The Kaia was therefore not well seen. The first portion of the duodenum and second portion of the duodenum were normal. The pylorus appeared closed though it was possible to advance the scope through the pyloric channel and there was no evidence of persistent narrowing or ulceration. The impression was the patient was suffering effectively a gastric outlet obstruction, probably from vagus nerve dysfunction associated with her recent repair of her hiatal hernia with her Kaia fundoplication. The patient and her were counseled on the regarding this impression and the recommended treatment. I indicated to them that I felt a pyloroplasty would be appropriate. In order to prepare her, a peripherally inserted central catheter (PICC) (PICC) line was placed to begin total parenteral nutrition. On May 02, 2019, she underwent a robotic-assisted laparoscopic pyloroplasty with a lysis of adhesions. A Heineke-Mikulicz type pyloroplasty was performed. She had a drain left in place after the surgery. By postop day #1 it was noted that she had done well. For several days postop, she continued to complain primarily of persistent nausea. Total parenteral nutrition was continued. She was kept nothing by mouth initially and then was advanced to some sips of liquids and clear liquids and on the she was advanced to a full liquid diet. Her nausea improved significantly over the several days starting on or about May 06, 2019. She was starting to tolerate some liquids and her diet was gradually advanced. She was scheduled for a swallowing study with upper GI series on the but she was not able to tolerate the Gastrografin and then developed some vomiting such that the procedure was aborted. Despite this, her oral intake improved. She had little discomfort after the surgery. Her drain was removed after the output diminished appropriately. By 05/11/2019 she reported feeling much better and was tolerating some solid food with no significant nausea. Her labs were good. She continued to make good progress and was discharged home on May 13, 2019. FINAL DIAGNOSES: 1. 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 2. Hypertension. 3. Hypercholesterolemia. 4. Anxiety and depression. 5. Chronic obstructive pulmonary disease. 6. History of chronic low back pain. 7. Environmental allergies. PROCEDURES PERFORMED: 1. Upper endoscopy on May 01, 2019. 2. Placement of PICC line by radiology on May 02, 2019. 3. Robotic-assisted laparoscopic pyloroplasty with lysis of adhesions on May 02, 2019. DISPOSITION: The patient was discharged home on May 13, 2019. She was to take a diet consisting of soft foods. She could pursue activity as tolerated. She was to shower as desired and continue a small dressing on her drain site until this was healed. She was provided prescriptions for metoclopramide 5 mg four times daily before meals and at bedtime and promethazine 12.5 mg every 6 hours as needed for nausea not to exceed two doses per day. She was to continue her usual medications. She was to followup on June 04, 2019 at 8:30 in the morning. She was to call the office or followup in the emergency department for worsening abdominal pain or nausea, vomiting or any other major problems.
== END 2019-05-13 11:10 | disposition home or self-care (01) | DRG 328 ==
LOC: M ED 18:48 → M MS5PR 23:55
PROVIDERS: ADMIT Surgery; ATTEND Surgery
PROC: 0DJ08ZZ Inspection of Upper Intestinal Tract, Via Natural or Artificial Opening Endoscopic (ICD-10-PCS; 2019-05-01)
PROC: 0DNW4ZZ Release Peritoneum, Percutaneous Endoscopic Approach (ICD-10-PCS; 2019-05-02)
PROC: 02HV33Z Insertion of Infusion Device into Superior Vena Cava, Percutaneous Approach (ICD-10-PCS; 2019-05-02)
PROC: 0DQ74ZZ Repair Stomach, Pylorus, Percutaneous Endoscopic Approach (ICD-10-PCS; principal; 2019-05-02 09:45)
DX: K31.1 Adult hypertrophic pyloric stenosis (principal); G52.2 Disorders of vagus nerve; I10 Essential (primary) hypertension; E78.00 Pure hypercholesterolemia, unspecified; F41.9 Anxiety disorder, unspecified; F32.9 Major depressive disorder, single episode, unspecified; J44.9 Chronic obstructive pulmonary disease, unspecified; M54.5 Low back pain; Z79.899 Other long term (current) drug therapy

== ENCOUNTER → 2019-11-22 | Outpatient (CLI) | payer MEDICARE ==
[~2019-11-22] MED LIST changes: +ACET-908 PO; +GABA-1171 PO; +METO5TAB2 PO; +PRAV40TA2 PO; +SM HTAB3 PO
== END ==
LOC: M LABSMTC 09:25
PROVIDERS: ATTEND Anesthesiology
DX: Z01.818 Encounter for other preprocedural examination (principal); Z11.59 Encounter for screening for other viral diseases

== ENCOUNTER 2019-11-25 09:23 | Day surgery (SDC) | payer MEDICARE ==
[~2019-11-25] VITALS: Ht 162.6 cm; Wt 70.3 kg
[~2019-11-25 09:23] MED LIST changes: +LIDOCAINE 2% 100MG/5ML SDV (FOR ANES.) As Ordered ONE; +NS 1,000 ML IV ONE; +propofoL 200 MG/20 ML VIAL As Ordered ONE
[2019-11-25] MEDS ORDERED: propofoL 200 MG/20 ML VIAL As Ordered ONE (10:42)
--- NOTE | 2019-11-25 11:07 | ROOR ---
Patient Name: Dianne Graham Procedure Date: 11/25/2019 10:25 AM Date of : 1950 Age: 69 [facility] Note Status: Finalized Procedure: Upper GI endoscopy Indications: Dysphagia, Patient is post op from repair of hiatal hernia with Kaia in 04/10 and pyloroplasty in 05/10. Providers: Minor Pantoja MD Referring MD: Harini Romo NP Requesting Provider: Medicines: Monitored Anesthesia Care Complications: No immediate complications. Procedure: Pre-Anesthesia Assessment: - Prior to the procedure, a History and Physical was performed, and patient medications and allergies were reviewed. The patient is competent. The risks and benefits of the procedure and the sedation options and risks were discussed with the patient. All questions were answered and informed consent was obtained. Patient identification and proposed procedure were verified by the physician, the nurse and the eyeglass cutter in the procedure room. Mental Status Examination: alert and oriented. Prophylactic Antibiotics: The patient does not require prophylactic antibiotics. Prior Anticoagulants: The patient has taken no previous anticoagulant or antiplatelet agents. ASA Grade Assessment: III - A patient with severe systemic disease. After reviewing the risks and benefits, the patient was deemed in satisfactory condition to undergo the procedure. The anesthesia plan was to use monitored anesthesia care (MAC). Immediately prior to administration of medications, the patient was re-assessed for adequacy to receive sedatives. The heart rate, respiratory rate, oxygen saturations, blood pressure, adequacy of pulmonary ventilation, and response to care were monitored throughout the procedure. The physical status of the patient was re-assessed after the procedure. The Endoscope was introduced through the mouth, and advanced to the second part of duodenum. The upper GI endoscopy was accomplished without difficulty. The patient tolerated the procedure well. Findings: The Z-line was irregular and was found 35 cm from the incisors. Evidence of a Kaia fundoplication was found in the cardia. The wrap appeared intact. This was traversed. It appeared that there might be a mild narrowing at the GE junction. A TTS dilator was passed through the scope. Dilation with a 15-16.5-18 mm balloon dilator was performed to 18 mm. The dilation site was examined and showed no change. A deformity was found at the pylorus. The pylorus was wide open consistent with her pyloroplasty. Multiple 2 to 10 mm sessile polyps with no bleeding and no stigmata of recent bleeding were found in the gastric fundus, in the gastric body and on the greater curvature of the stomach. The first portion of the duodenum and second portion of the duodenum were normal. Impression: - Z-line irregular, 35 cm from the incisors. - A Kaia fundoplication was found. The wrap appears intact. Dilated. - Post-surgical deformity in the pylorus. - Multiple gastric polyps. - Normal first portion of the duodenum and second portion of the duodenum. - No specimens collected. Recommendation: - Discharge patient to home. - Resume previous diet. - Continue present medications. - Return to endoscopist PRN. Minor Pantoja MD Minor Pantoja MD 11/25/2019 11:07:13 AM Electronically signed by Minor Pantoja MD Number of Addenda: 0 Note Initiated On: 11/25/2019 10:25 AM Estimated Blood Loss: Estimated blood loss: none.
[2019-11-25 11:20] VITALS: BP 122/64
== END 2019-11-25 11:36 | disposition home or self-care (01) ==
LOC: M OPP 09:23
PROVIDERS: ATTEND Surgery
DX: K22.8 Other specified diseases of esophagus (principal); K91.89 Other postprocedural complications and disorders of digestive system; K31.7 Polyp of stomach and duodenum; Z98.890 Other specified postprocedural states; I10 Essential (primary) hypertension; K44.9 Diaphragmatic hernia without obstruction or gangrene; J45.909 Unspecified asthma, uncomplicated; Z79.899 Other long term (current) drug therapy; Z88.5 Allergy status to narcotic agent

== ENCOUNTER 2023-01-03 08:44 | Day surgery (SDC) | payer MEDICARE ==
[~2023-01-03] VITALS: Ht 162.6 cm; Wt 70.4 kg
[~2023-01-03 08:44] MED LIST changes: -ACET-908 PO; +ACET-910 PO; +BSS IRRIG/VANCO(10MG)/TOBRA(5MG)/EPINEPH(1:1000-0.5CC)500ML BAG-ORONLY IR ONE; +CEFUROXIME 1MG/0.1ML INTRACAMERAL INJ As Ordered ONE; +CVS-161 PO; +CYCLOPENTOLATE 1% OPHTH SOLN 2ML BTL OS SCH; +GABA-283 PO; -GABA-845 PO; -KLOR10TA76 PO; +LIDOCAINE 1% SDV 5ML VIAL As Ordered ONE; -LIDOCAINE 2% 100MG/5ML SDV (FOR ANES.) As Ordered ONE; +LIDOCAINE 3.5 % 1ML OPHTH TOPICAL GEL OU ONE; +MIDAZOLAM INJ 2MG/2ML VIAL As Ordered ONE; -NABU-126 PO; +NABU-71 PO; -NS 1,000 ML IV ONE; +OFLOXACIN 0.3 % (OCUFLOX) OPTH SOL 5ML OS ONE; -ORPH100T PO; +ORPH1TAB6 PO; +PHENYLEPHRINE 10% OPHTH SOL 5ML OS PRN; +PHENYLEPHRINE 2.5% OPHTH SOL 2ML OS SCH; +POTA-136 PO; +TROPICAMIDE 1% OPHTH SOLN 15ML OS SCH; +fentaNYL 100 MCG/2 ML INJECTION As Ordered ONE; -propofoL 200 MG/20 ML VIAL As Ordered ONE
[2023-01-03 11:09] VITALS: BP 154/77; TEMP 96.9; O2SAT 96
== END 2023-01-03 11:20 | disposition home or self-care (01) ==
LOC: M SDC 08:44
PROVIDERS: ATTEND Ophthalmology
DX: H25.12 Age-related nuclear cataract, left eye (principal); I10 Essential (primary) hypertension; E78.5 Hyperlipidemia, unspecified; K44.9 Diaphragmatic hernia without obstruction or gangrene; K21.9 Gastro-esophageal reflux disease without esophagitis; M54.50 Low back pain, unspecified; J45.909 Unspecified asthma, uncomplicated; Z79.51 Long term (current) use of inhaled steroids; Z79.899 Other long term (current) drug therapy; Z88.5 Allergy status to narcotic agent
CPT/HCPCS: 66984; 92015; J0697; J2250; J3010; V2788

== ENCOUNTER 2023-02-07 08:30 | Day surgery (SDC) | payer MEDICARE ==
[~2023-02-07] VITALS: Ht 162.6 cm; Wt 69.9 kg
[~2023-02-07 08:30] MED LIST changes: +CYCLOPENTOLATE 1% OPHTH SOLN 2ML BTL OD SCH; -CYCLOPENTOLATE 1% OPHTH SOLN 2ML BTL OS SCH; -GABA-283 PO; +GABA-284 PO; -MIDAZOLAM INJ 2MG/2ML VIAL As Ordered ONE; +OFLOXACIN 0.3 % (OCUFLOX) OPTH SOL 5ML OD ONE; -OFLOXACIN 0.3 % (OCUFLOX) OPTH SOL 5ML OS ONE; +PHENYLEPHRINE 10% OPHTH SOL 5ML OD PRN; -PHENYLEPHRINE 10% OPHTH SOL 5ML OS PRN; +PHENYLEPHRINE 2.5% OPHTH SOL 2ML OD SCH; -PHENYLEPHRINE 2.5% OPHTH SOL 2ML OS SCH; +TROPICAMIDE 1% OPHTH SOLN 15ML OD SCH; -TROPICAMIDE 1% OPHTH SOLN 15ML OS SCH; -fentaNYL 100 MCG/2 ML INJECTION As Ordered ONE
[2023-02-07] MEDS ORDERED: fentaNYL 100 MCG/2 ML INJECTION As Ordered ONE (11:05)
[2023-02-07] MEDS ORDERED: MIDAZOLAM INJ 2MG/2ML VIAL As Ordered ONE (11:05)
[2023-02-07 11:40] VITALS: BP 162/72; TEMP 98; O2SAT 96
== END 2023-02-07 11:54 | disposition home or self-care (01) ==
LOC: M SDC 08:30
PROVIDERS: ATTEND Ophthalmology
DX: H25.11 Age-related nuclear cataract, right eye (principal); I10 Essential (primary) hypertension; E78.5 Hyperlipidemia, unspecified; K44.9 Diaphragmatic hernia without obstruction or gangrene; K21.9 Gastro-esophageal reflux disease without esophagitis; Z79.899 Other long term (current) drug therapy; F41.9 Anxiety disorder, unspecified; F32.A Depression, unspecified; Z87.891 Personal history of nicotine dependence; Z88.5 Allergy status to narcotic agent
CPT/HCPCS: 66984; 92015; J0697; J2250; J3010; V2788